=== PATIENT | male | born 1970 | race Caucasian/White ===

== ENCOUNTER 2021-11-11 00:23 | Inpatient (IN) | payer OTHER, MEDICAID, SELFPAY ==
[2021-11-11] VITALS (22 sets, daily range): BP systolic 101–200; BP diastolic 76–129; PULSE 79–119; RESP 10–38; TEMP 36.6–37.3; O2SAT 97–100; BMI 19.5
--- NOTE | 2021-11-11 00:29 | ED_ITS ---
HPI - Seizure General Chief Complaint: Seizure Stated Complaint: seizure, ETOH WD Time Seen by Provider: 11/11/21 00:29 History of Present Illness HPI Narrative: Patient is a 51-year-old male history of alcoholism presenting today with seizure. He was admitted to [facility] for 6 days where he went through detox. He was released 2 days ago. Partner states that he picked him up and within a few hours had a seizure at a park. They went to [place] is her he was given a dose of phenobarbital and released. They apparently tried to find him detox center but since he had already detox for the last 6 days in the hospital he was not accepted the. They are working on a 30 day outpatient program. However this evening he had another witnessed seizure that lasted for about 5 minutes. No loss of incontinence. Tonic clonic shaking all over the body. Patient has previously had alcohol withdrawal seizures. They are unsure the medication that he got at [facility]. He states that he is currently taking phenobarbital. He was started on after is going to [place]. Partner gave him half a tablet in the morning and another half this evening. And the few hours later had a seizure. Records from [place] reveal that patient was admitted to of [facility]. During his stay he had an MRI which was negative. He was treated by [facility] protocol with IV doses of Ativan. He was discharged home on phenobarbital 15 mg to be taken twice a day for 4 days then 15 mg once a day. He was also given thiamine at discharge as well. he has Been alcohol free for the last 8-9 days. It was recommended patient be readmitted to the hospital however he did not want to be readmitted Related Data Allergies Allergy/AdvReac Type Severity Reaction Status Date / Time codeine AdvReac Verified 11/11/21 00:30 Review of Systems Review of Systems Narrative: GENERAL: Denies chills, fatigue, malaise, fever, sweats, travel HEENT: Denies sinus pain, ear pain, sore throat, difficulty swallowing, neck pain RESPIRATORY: Denies dyspnea, cough, wheezing, hemoptysis, sputum. CARDIOVASCULAR: Denies chest pain, palpitations, orthopnea, edema GASTROINTESTINAL: Denies nausea, vomiting, abdominal pain, diarrhea, consti pation, melena. : Denies dysuria, frequency, incontinence, hematuria, urinary retention, flank pain. MUSCULOSKELETAL: Denies weakness, joint pain, or bony pain SKIN: No rash, no erythema, no pruritus NEUROLOGIC: See HPI PSYCHIATRIC: No concerning psychosocial issues. 12 point review of systems is negative except for those stated above and HPI Patient History Medical History (Updated 11/11/21 @ 03:34 by April Schroeder MD) Alcohol abuse Alcohol withdrawal seizure Tobacco dependence Family History (Updated 11/11/21 @ 03:18 by April Schroeder MD) Mother Alcohol dependence Brother Coronary artery disease Father Coronary artery disease Social History household members: significant other Smoking Status: Current every day smoker Exam Initial Vital Signs Initial Vital Signs: Vital Signs Pulse Rate 111 H 11/11/21 00:29 Blood Pressure 183/129 H 11/11/21 00:29 Pulse Oximetry 100 11/11/21 00:29 GENERAL: Alert 51-year-old male no sign of acute distress HEENT: Head atraumatic,EOMI, pupils reactive, face symmetric, moist mucous membranes CARDIOVASCULAR: Tachycardic regular RESPIRATORY: Breath sounds equal bilaterally, no wheezes rales or rhonchi. ABDOMEN: Soft, nontender. Normoactive bowel sounds all 4 quadrants. No guarding or rebound. EXTREMITIES: Normal range of motion, no clubbing or edema. Neurovascularly intact NEUROLOGICAL: Alert and oriented x4.Normal gait and speech. Shank Scourer strength equal bilaterally no asterixis SKIN: Warm, dry, no laceration, no petechiae, no rashes or lesions. Course Orders Ordered: ED Orders 11/11/21 00:15 CBC Auto Diff [Complete Blood Count AUTO DIFF] Stat CMP [Comprehensive Metabolic Panel] Stat ETOH [Ethanol (ETOH)] Stat Prolactin Stat Troponin & CK Cardiac Panel Stat 11/11/21 00:29 CT head/brain wo con Stat EKG-12 Lead Stat 11/11/21 01:08 Urine Drug Screen, Rapid Stat 11/11/21 02:00 COVID19 -Nasal RAPID/Pre-Proc Stat Calcium Carbonate (Calcium Carbonate 500 Mg Tab) 1,000 mg PO Q4HR PRN PRN Reason: Dyspepsia Chlordiazepoxide HCl (Chlordiazepoxide 25 Mg Capsule) 50 mg PO Q6HR MAI Last Admin: 11/11/21 05:20 Dose: 50 mg Documented by: [email or web address] Famotidine (Famotidine 20 Mg Tablet) 20 mg PO BEDTIME [facility] Folic Acid (Folic Acid 1 Mg Tablet) 1 mg PO DAILY [facility] Sodium Chloride (Normal Saline 0.9%) 1,000 mls @ 100 mls/hr IV CONT [facility] Last Admin: 11/11/21 03:55 Dose: 100 mls/hr Documented by: DEVANTE POTASSIUM CHLORIDE IN WATER (Potassium Cl 10 Meq/100 Ml [place]) 10 meq in 100 mls @ 100 mls/hr IV Q1H [facility] Stop: 11/11/21 10:14 Lorazepam (Lorazepam 2 Mg/Ml Inj) 0 mg IV CIWAPRN PRN; Protocol PRN Reason: Alcohol Withdrawal Multivitamins (Multivitamin 1 Tablet) 1 tab PO DAILY [facility] Naloxone HCl (Naloxone 0.4 Mg/Ml Vial) 0.2 mg IV Q2MIN PRN PRN Reason: Opiate Reversal Nicotine (Nicotine 21 Mg Patch) 21 mg TOP DAILY [facility] Ondansetron HCl (Ondansetron 4 Mg/2 Ml Inj) 4 mg IV Q6HR PRN PRN Reason: Nausea And Vomiting Pantoprazole Sodium (Pantoprazole Dr 20 Mg Tablet) 20 mg PO 0600 [facility] Last Admin: 11/11/21 05:20 Dose: 20 mg Documented by: DEVANTE Thiamine HCl (Thiamine 100 Mg Tablet) 100 mg PO DAILY [facility] Stop: 11/14/21 09:01 Discontinued Medications Sodium Chloride (Normal Saline 0.9%) 1,000 mls @ 1,000 mls/hr IV BOLUS ONE Stop: 11/11/21 01:28 Last Infusion: 11/11/21 02:47 Dose: 0 mls/hr Documented by: Admin: 11/11/21 01:12 Dose: 1,000 mls/hr Documented by: ARMAND Lorazepam (Lorazepam 2 Mg/Ml Inj) 1 mg IV NOW ONE Stop: 11/11/21 01:57 Last Admin: 11/11/21 02:02 Dose: 1 mg Documented by: BARBARA Phenobarbital (Phenobarbital 65 Mg/Ml Vial) 130 mg IV NOW ONE Stop: 11/11/21 01:23 Last Admin: 11/11/21 01:31 Dose: 130 mg Documented by: ARMAND Potassium Chloride (Potassium Chloride 20 Meq Tab) 40 meq PO NOW ONE Stop: 11/11/21 01:03 Last Admin: 11/11/21 01:12 Dose: 40 meq Documented by: ARMAND Potassium Chloride (Potassium Chloride 20 Meq Tab) 20 meq PO NOW ONE Stop: 11/11/21 06:10 Vital Signs Vital signs: Vital Signs - 8 hr 11/11/21 00:29 11/11/21 00:30 11/11/21 00:35 Temperature 98.5 F Pulse Rate 111 H 107 H 103 H Respiratory Rate 18 Blood Pressure 183/129 H 167/107 H 166/109 H Pulse Oximetry 100 100 100 11/11/21 00:45 11/11/21 01:00 11/11/21 01:15 Temperature Pulse Rate 100 H 95 H 100 H Respiratory Rate 19 18 38 H Blood Pressure 174/123 H 173/120 H 178/117 H Pulse Oximetry 100 99 98 11/11/21 01:30 11/11/21 01:45 11/11/21 02:00 Temperature Pulse Rate 96 H 97 H 90 Respiratory Rate 15 16 15 Blood Pressure 181/113 H 186/114 H 160/101 H Pulse Oximetry 100 100 99 MDM - Seizure Lab Data Result diagrams: 11/11/21 03:35 11/11/21 03:35 Labs: Lab Results 11/11/21 11/11/21 11/11/21 Range/Units 00:15 00:15 01:08 WBC 7.4 (4.5-11.0) X10^3/uL RBC 3.41 L (4.5-5.9) X10^6/uL Hgb 12.5 L (13.5-17.5) g/dL Hct 35.0 L (41-53) % MCV 102.5 H (80-100) fL MCH 36.7 H (26-34) PG MCHC 35.9 (30-36) % RDW 13.4 (11.6-14.8) % Plt Count 141 L (150-400) X10^3/uL Neut % (Auto) 54.8 (50-75) % Lymph % (Auto) 29.9 (25-40) % Dundy % (Auto) 12.6 (3-14) % Eos % (Auto) 1.1 L (2-4) % Baso % (Auto) 1.6 (0-2) % Neut # (Auto) 4100 (5700-1414) /uL Lymph # (Auto) 2200 (8025-3577) /uL Dundy # (Auto) 900 (0-900) /uL Eos # (Auto) 100 (0-450) /uL Baso # (Auto) 100 (0-100) /uL Sodium 132 L (137-145) mmol/L Potassium 3.1 L (3.4-5.1) mmol/L Chloride 100 (98-107) mmol/L Carbon Dioxide 24 (22-32) mmol/L BUN 4 L (9-20) mg/dL Creatinine 0.51 L (0.66-1.25) mg/dL Estimated GFR > 60 (>60) mL/min BUN/Creatinine Ratio 7.8 (6-22) Glucose 88 (70-100) mg/dL Calcium 8.5 (8.4-10.2) mg/dL Total Bilirubin 0.6 (0.2-1.3) mg/dL AST 98 H (17-59) IU/L ALT 57 H (<50) IU/L Alkaline Phosphatase 100 (38-126) U/L Total Creatine Kinase 86 (55-170) U/L CK-MB (CK-2) TNP CK-MB (CK-2) Rel Index TNP Troponin I < 0.012 (0.01-0.034) ng/mL Total Protein 6.7 (6.3-8.2) g/dL Albumin 3.8 (3.5-5.0) g/dL Globulin 2.9 (1.7-4.1) g/dL Albumin/Globulin Ratio 1.3 (1.0-2.8) Prolactin 48.9 H (3.7-17.9) ng/mL U Opiates 300ng/mL cut Negative (Negative) Ur Oxycodone Screen Negative (Negative) Urine Methadone Screen Negative (Negative) Ur Barbiturates Screen Positive H (Negative) U Tricyclic Antidepress Negative (Negative) Ur Phencyclidine Scrn Negative (Negative) Ur Amphetamines Screen Negative (Negative) U Methamphetamines Scrn Negative (Negative) Ur MDMA Scrn (Ecstasy) Negative (Negative) U Benzodiazepines Scrn Positive H (Negative) Urine Cocaine Screen Negative (Negative) U Marijuana (THC) Screen Positive H (Negative) Ethyl Alcohol < 10 ( - 10) mg/dL SARS-CoV-2 (PCR) (Negative) 11/11/21 Range/Units 02:00 WBC (4.5-11.0) X10^3/uL RBC (4.5-5.9) X10^6/uL Hgb (13.5-17.5) g/dL Hct (41-53) % MCV (80-100) fL MCH (26-34) PG MCHC (30-36) % RDW (11.6-14.8) % Plt Count (150-400) X10^3/uL Neut % (Auto) (50-75) % Lymph % (Auto) (25-40) % Dundy % (Auto) (3-14) % Eos % (Auto) (2-4) % Baso % (Auto) (0-2) % Neut # (Auto) (0763-2227) /uL Lymph # (Auto) (1475-7793) /uL Dundy # (Auto) (0-900) /uL Eos # (Auto) (0-450) /uL Baso # (Auto) (0-100) /uL Sodium (137-145) mmol/L Potassium (3.4-5.1) mmol/L Chloride (98-107) mmol/L Carbon Dioxide (22-32) mmol/L BUN (9-20) mg/dL Creatinine (0.66-1.25) mg/dL Estimated GFR (>60) mL/min BUN/Creatinine Ratio (6-22) Glucose (70-100) mg/dL Calcium (8.4-10.2) mg/dL Total Bilirubin (0.2-1.3) mg/dL AST (17-59) IU/L ALT (<50) IU/L Alkaline Phosphatase (38-126) U/L Total Creatine Kinase (55-170) U/L CK-MB (CK-2) CK-MB (CK-2) Rel Index Troponin I (0.01-0.034) ng/mL Total Protein (6.3-8.2) g/dL Albumin (3.5-5.0) g/dL Globulin (1.7-4.1) g/dL Albumin/Globulin Ratio (1.0-2.8) Prolactin (3.7-17.9) ng/mL U Opiates 300ng/mL cut (Negative) Ur Oxycodone Screen (Negative) Urine Methadone Screen (Negative) Ur Barbiturates Screen (Negative) U Tricyclic Antidepress (Negative) Ur Phencyclidine Scrn (Negative) Ur Amphetamines Screen (Negative) U Methamphetamines Scrn (Negative) Ur MDMA Scrn (Ecstasy) (Negative) U Benzodiazepines Scrn (Negative) Urine Cocaine Screen (Negative) U Marijuana (THC) Screen (Negative) Ethyl Alcohol ( - 10) mg/dL SARS-CoV-2 (PCR) Negative (Negative) Imaging Data CT scan - head: Radiologist's Impression: MR#: [id number] : 1970 Acct:[id number] Age/Sex: 51 / M Date of Service: 11/11/21 Loc: ED Accession Number: [id number] ?? Procedure: CT head/brain wo con Ordering Provider: Maria De Jesus Sparks D.O. PROCEDURE:? CT HEAD/BRAIN WO CON ? INDICATIONS:? seizure etoh ? TECHNIQUE:? Noncontrast 4.5 mm thick angled axial sections acquired from the foramen magnum to the vertex, with coronal and sagittal reformats.? For radiation dose reduction, the following was used:? automated exposure control, adjustment of mA and/or kV according to patient size.? ? COMPARISON:? None. ? FINDINGS:? Image quality:? Mild streak artifact can be seen through the skull base. ? CSF spaces:? Basal cisterns are patent.? No extra-axial fluid collections.? Ventricles are normal in size and shape.? ? Brain:? No midline shift.? No intracranial masses or hemorrhage.? Reese-white matter interface is normal.? ? Skull and face:? Calvarium and visualized facial bones are intact, without suspicious lesions.? ? Sinuses:? Visualized sinuses and mastoids are clear.? ? ? IMPRESSION:? Head CT within normal limits. ? ? Dictated by: Gato rOta M.D. on 11/10/2021 at 23:54 ? ? Approved by: Gato Orta M.D. on 11/10/2021 at 23:55 ? ECG Data Interpretation: Normal sinus rhythm rate 103 VT interval 146 QRS [address] changes is no T-wave inversions no priors to compare MDM Narrative Medical decision making narrative: The patient has now had 2 seizures in the last 24 hours. I think these seizures have been actually from Ativan withdrawal. He was discharged home on phenobarbital not sure they are taking it correctly the prescription is confusing to read. He is trying to get into an outpatient 30 day program as well and also needs medical clearance. At this time he is willing to stay in the hospital tonight to get seizures under control. Dr. Dodson in ED to see and evaluate, and accepts patient Discharge Plan Departure Patient Disposition: Admitted As Inpatient Clinical Impression: Alcohol withdrawal seizure Admit Date/Time: 11/11/21 02:00 Admit Provider: April Schroeder
--- NOTE | 2021-11-11 00:29 | DI.CT.S_ITS ---
PROCEDURE: CT HEAD/BRAIN WO CON INDICATIONS: seizure etoh TECHNIQUE: Noncontrast 4.5 mm thick angled axial sections acquired from the foramen magnum to the vertex, with coronal and sagittal reformats. For radiation dose reduction, the following was used: automated exposure control, adjustment of mA and/or kV according to patient size. COMPARISON: None. FINDINGS: Image quality: Mild streak artifact can be seen through the skull base. CSF spaces: Basal cisterns are patent. No extra-axial fluid collections. Ventricles are normal in size and shape. Brain: No midline shift. No intracranial masses or hemorrhage. Reese-white matter interface is normal. Skull and face: Calvarium and visualized facial bones are intact, without suspicious lesions. Sinuses: Visualized sinuses and mastoids are clear. IMPRESSION: Head CT within normal limits. Dictated by: Gato Orta M.D. on 11/10/2021 at 23:54 Approved by: Gato Orta M.D. on 11/10/2021 at 23:55
--- NOTE | 2021-11-11 00:35 | PC.NURSE ---
pt was post ictal upon ems arrival, upon arrival to ed pt is aao x 3, pt is taking phenobarb to prevent withdrawal sz states he missed his afternoon dose. last drink was 8 days ago pt went to rehab and was given a course of phenobarb he states he is almost completed the course
[2021-11-11 00:42] LABS: Add Manual Diff / Slide Review NO; Basophils Absolute Auto 100 /uL (0-100); Basophils Percent Auto 1.6 % (0-2); Eosinophils Absolute Auto 100 /uL (0-450); Eosinophils Percent Auto 1.1 % (2-4); Hemoglobin 12.5 g/dL (13.5-17.5); Lymphocytes Absolute Auto 2200 /uL (1100-4500); Lymphocytes Percent Auto 29.9 % (25-40); Mean Corpuscular HGB Conc 35.9 % (30-36); Mean Corpuscular Hemoglobin 36.7 PG (26-34); Mean Corpuscular Volume 102.5 fL (80-100); Monocytes Absolute Auto 900 /uL (0-900); Monocytes Percent Auto 12.6 % (3-14); Neutrophils Absolute Auto 4100 /uL (1500-7000); Neutrophils Percent Auto 54.8 % (50-75); Platelet Count 141 X10^3/uL (150-400); Red Blood Cell Count 3.41 X10^6/uL (4.5-5.9); Red Cell Distribution Width 13.4 % (11.6-14.8); White Blood Cell Count 7.4 X10^3/uL (4.5-11.0)
[2021-11-11 00:50] LABS: Alanine Aminotransferase 57 IU/L (<50); Albumin 3.8 g/dL (3.5-5.0); Albumin Globulin Ratio 1.3 (1.0-2.8); Alkaline Phosphatase 100 U/L (38-126); Aspartate Aminotransferase 98 IU/L (17-59); BUN Creatinine Ratio 7.8 (6-22); Bilirubin Total 0.6 mg/dL (0.2-1.3); Blood Urea Nitrogen 4 mg/dL (9-20); Calcium 8.5 mg/dL (8.4-10.2); Carbon Dioxide 24 mmol/L (22-32); Chloride 100 mmol/L (98-107); Creatine Kinase 86 U/L (55-170); Estimated Glomerular Filt Rate > 60 mL/min (>60); Ethanol (ETOH) < 10 mg/dL; Globulin 2.9 g/dL (1.7-4.1); Glucose 88 mg/dL (70-100); HEMOLYSIS < 15 (0-50); Potassium 3.1 mmol/L (3.4-5.1); Sodium 132 mmol/L (137-145); Total Protein 6.7 g/dL (6.3-8.2)
[2021-11-11 01:02] LABS: Troponin I < 0.012 ng/mL (0.01-0.034)
[2021-11-11 01:06] LABS: Prolactin 48.9 ng/mL (3.7-17.9)
[2021-11-11] MEDS: POTASSIUM CHLORIDE 20 MEQ TAB 40 MEQ PO (01:12)
[2021-11-11] MEDS: SODIUM CHLORIDE 0.9% 1,000 ML 1000 ML IV (01:12)
[2021-11-11 01:21] LABS: UR Morphine/Opiate cutoff 300 Negative (Negative); Ur Creatinine 50 (Normal); Ur Specific Gravity 1.025 (Normal); Urine Amphetamines Negative (Negative); Urine Cocaine Negative (Negative); Urine MDMA Negative (Negative); Urine Methamphetamines Negative (Negative); Urine Phencyclidine Negative (Negative); Urine Tetrahydrocannabinol Positive (Negative); Urine pH 5 (Normal)
[2021-11-11 01:22] LABS: Urine Barbiturates Positive (Negative); Urine Benzodiazepines Positive (Negative); Urine Methadone Negative (Negative); Urine Oxycodone Negative (Negative); Urine Tricyclic Antidepressant Negative (Negative)
[2021-11-11] MEDS: PHENobarbital 65 MG/ML VIAL 130 MG IV (01:31)
[2021-11-11] MEDS: LORazepam 2 MG/ML INJ 1 MG IV (02:02)
[2021-11-11 02:25] LABS: COVID19 -Nasal RAPID Negative (Negative)
--- NOTE | 2021-11-11 02:53 | P.HP_ITS ---
History of Present Illness History of Present Illness Chief complaint: seizure, ETOH WD Narrative: 51-year-old gentleman with longstanding history of alcohol dependence who presented to the emergency department after recurrent seizure. All history is obtained from the patient's significant other, Christo, as well as previous chart notes. Patient reportedly has had alcohol dependence for the past 35 years. For at least the past year or so, he has been drinking 12-18 beers per day or 1 large bottle of Merlot. He is have any significant period of sobriety. Up until 2020, he had not previously attempted to quit drinking. However, each time he has attempted to stop drinking since then, he has unfortunately suffered from withdrawal seizures. He recently stopped drinking alcohol on November 02, 2021. By the following day he had significant withdrawal symptoms. He was subsequently admitted to [facility] in [place], [place]. A brain MRI was reportedly normal. He remained there until November 09, 2021. His partner reported that the patient had been on benzodiazepines, but he is uncertain when those were discontinued. At the time of discharge, he was sent with a prescription for thiamine and a 2nd prescription but the patient's partner is uncertain what that med was. He left the hospital at approximately 1:00 p.m. However, around 4-430 p.m. he had a prolonged seizure lasting 5-6 minutes and he was transferred to [facility]. Admission was recommended but patient declined. He was given IV phenobarbital in the emergency department and was sent home with a prescription for this 15 mg twice daily followed by 15 mg once daily. He was sent with a 7 day prescription. Patient's partner reports he received a dose of oral phenobarbital on the evening of November 09. He also received both doses of oral phenobarbital on November 10. On the evening of November 10, he sustained another seizure and presented to [facility] Emergency Department for further evaluation. In the emergency department, he was noted to be postictal. He was initially quite hypertensive at 173/120. Pulse rate was 95, respiratory rate 18. Respiratory rate briefly documented at 38 but subsequently were down to the 15-[address] was performed and was within normal limits. CBC revealed macrocytic anemia with a hemoglobin of 12.5, as well as mild thrombocytopenia 141. And mild hyponatremia 132, potassium of 3.1. Urine tox screen was positive for marijuana, benzodiazepines, and barbiturates. Ethanol level was less than 10. Prolactin was 48.9. AST was elevated at 98. ALT elevated at 57. Normal alkaline phosphatase. Troponin was also within normal limits. In the emergency department, patient received 1 L of normal saline, 40 mEq of oral potassium chloride, 130 mg of IV phenobarbital, and 1 mg of IV lorazepam. Admission was recommended. Currently, patient is somnolent/postictal and unable to provide any history. Patient's partner reports patient has no history of seizure disorder, recent fall/head trauma, recent ill symptoms. He has gradually lost approximately 30 lb as he eats very poorly and primarily drinks his calories. He had been eating well in the hospital prior to discharge. He has not had any fevers or chills. No shortness of breath or complaint chest pain. He had not been having any nausea, vomiting, diarrhea, or complaints of abdominal pain. Patient History Medical History (Updated 11/11/21 @ 03:34 by April Schroeder MD) Alcohol abuse Alcohol withdrawal seizure Tobacco dependence Family & Social History Family History (Updated 11/11/21 @ 03:18 by April Schroeder MD) Mother Alcohol dependence Brother Coronary artery disease Father Coronary artery disease Social History: Patient and his partner presently living in an . 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 They sold their home and business and have not yet decided where they intend to go next. Patient and his partner have been together for the past 6 years. Safety & Behavioral: Feels Safe in Current Yes Environment Tobacco & Substance use: Smoking Status Current every day smoker Substance Use Type marijuana Comment: Patient presently smokes 2 packs per day Uses recreational marijuana but no other substance use. Meds Home Medications and Allergies Allergies Allergy/AdvReac Type Severity Reaction Status Date / Time codeine AdvReac Verified 11/11/21 00:30 Review of Systems Constitutional Constitutional: Reports as per HPI, Reports poor appetite and Reports weight loss Neurologic Neurologic: Reports as per HPI and Reports seizure-like activity Exam Vital Signs (past 8 hours): - 11/11/21 00:29 11/11/21 00:30 11/11/21 00:35 Temperature 98.5 F Pulse Rate 111 H 107 H 103 H Respiratory Rate 18 Blood Pressure 183/129 H 167/107 H 166/109 H Pulse Oximetry 100 100 100 06/04/22 00:45 11/11/21 01:00 11/11/21 01:15 Temperature Pulse Rate 100 H 95 H 100 H Respiratory Rate 19 18 38 H Blood Pressure 174/123 H 173/120 H 178/117 H Pulse Oximetry 100 99 98 11/11/21 01:30 11/11/21 01:45 11/11/21 02:00 Temperature Pulse Rate 96 H 97 H 90 Respiratory Rate 15 16 15 Blood Pressure 181/113 H 186/114 H 160/101 H Pulse Oximetry 100 100 99 11/11/21 02:15 11/11/21 02:30 11/11/21 02:44 Temperature Pulse Rate 91 H 90 90 Respiratory Rate 10 L 16 10 L Blood Pressure 149/93 H 142/97 H Pulse Oximetry 11/11/21 02:45 Temperature Pulse Rate Respiratory Rate Blood Pressure 127/85 Pulse Oximetry Oxygen Delivery Method Room Air Narrative Exam Narrative: GEN: Somnolent/postictal, middle-aged male, smells strongly of cigarettes, NAD HEENT: Normocephalic, face symmetric, nares patent, difficult to assess his oropharynx is I cannot get him to cooperate with exam, pupils appear equal and reactive the extraocular movements cannot be assessed NECK: Supple, no lymphadenopathy, no thyroid enlargement or nodularity, no bruits CHEST: Respiratory excursions symmetric, clear to auscultation bilaterally CV: Regular rate and rhythm, no murmurs/rubs/gallops, PMI nondisplaced ABD: Soft, mildly tender to palpation of the right upper quadrant, nondistended, bowel sounds present in all 4 quadrants, no organomegaly appre ciated EXTR: Warm, well perfused, no clubbing, cyanosis, or edema SKIN: Warm and dry, no rashes NEURO: Appears grossly intact though cannot assess due to his sedation PSYCH: Unable to assess Objective Labs Result Diagrams: 11/11/21 00:15 11/11/21 00:15 Labs: Laboratory Results - last 24 hr 11/11/21 11/11/21 11/11/21 00:15 00:15 01:08 WBC 7.4 RBC 3.41 L Hgb 12.5 L Hct 35.0 L MCV 102.5 H MCH 36.7 H MCHC 35.9 RDW 13.4 Plt Count 141 L Neut % (Auto) 54.8 Lymph % (Auto) 29.9 [place] % (Auto) 12.6 Eos % (Auto) 1.1 L Baso % (Auto) 1.6 Neut # (Auto) 4100 Lymph # (Auto) 2200 [place] # (Auto) 900 Eos # (Auto) 100 Baso # (Auto) 100 Sodium 132 L Potassium 3.1 L Chloride 100 Carbon Dioxide 24 BUN 4 L Creatinine 0.51 L Estimated GFR > 60 BUN/Creatinine Ratio 7.8 Glucose 88 Calcium 8.5 Total Bilirubin 0.6 AST 98 H ALT 57 H Alkaline Phosphatase 100 Total Creatine Kinase 86 CK-MB (CK-2) TNP CK-MB (CK-2) Rel Index TNP Troponin I < 0.012 Total Protein 6.7 Albumin 3.8 Globulin 2.9 Albumin/Globulin Ratio 1.3 Prolactin 48.9 H U Opiates 300ng/mL cut Negative Ur Oxycodone Screen Negative Urine Methadone Screen Negative Ur Barbiturates Screen Positive H U Tricyclic Antidepress Negative Ur Phencyclidine Scrn Negative Ur Amphetamines Screen Negative U Methamphetamines Scrn Negative Ur MDMA Scrn (Ecstasy) Negative U Benzodiazepines Scrn Positive H Urine Cocaine Screen Negative U Marijuana (THC) Screen Positive H Ethyl Alcohol < 10 SARS-CoV-2 (PCR) 11/11/21 02:00 WBC RBC Hgb Hct MCV MCH MCHC RDW Plt Count Neut % (Auto) Lymph % (Auto) [place] % (Auto) Eos % (Auto) Baso % (Auto) Neut # (Auto) Lymph # (Auto) [place] # (Auto) Eos # (Auto) Baso # (Auto) Sodium Potassium Chloride Carbon Dioxide BUN Creatinine Estimated GFR BUN/Creatinine Ratio Glucose Calcium Total Bilirubin AST ALT Alkaline Phosphatase Total Creatine Kinase CK-MB (CK-2) CK-MB (CK-2) Rel Index Troponin I Total Protein Albumin Globulin Albumin/Globulin Ratio Prolactin U Opiates 300ng/mL cut Ur Oxycodone Screen Urine Methadone Screen Ur Barbiturates Screen U Tricyclic Antidepress Ur Phencyclidine Scrn Ur Amphetamines Screen U Methamphetamines Scrn Ur MDMA Scrn (Ecstasy) U Benzodiazepines Scrn Urine Cocaine Screen U Marijuana (THC) Screen Ethyl Alcohol SARS-CoV-2 (PCR) Negative Assessment & Plan Assessment and plan (1) Tobacco dependence: Status: Acute (2) Alcohol withdrawal seizure: Status: Acute (3) Alcohol abuse: Status: Acute Assessment & Plan narrative: 1. Seizure Patient has a known history of alcohol withdrawal seizures. He was admitted for 7 days at [facility] in [place], [place]. At the time of discharge, it does not appear he was given any benzodiazepines. I am uncertain as to when he received his last dose of benzodiazepine in the hospital. Shortly after discharge, he had a witnessed prolonged seizure lasting 5-6 minutes. He subsequently was seen in the emergency department at [facility]. Admission was recommended but he declined. He received IV phenobarbital as well as a 7 day prescription/taper at discharge. He did receive 3 doses of phenobarbital orally but unfortunately he sustained another seizure on the evening of admission. His last alcohol was 8 days prior to arrival in our emergency department. It is possible he has a prolonged withdrawal syndrome, particularly in light of his 35-year-old daily alcohol use and most recent heavy alcohol use. It is also possible he was receiving benzodiazepines during his inpatient stay and he has suffered acute withdrawal seizure secondary to discontinuation of benzodiazepines. He has not had any alcohol since discharge from [facility] in [place]. At this time, will plan admission to the hospital for further ongoing care. Will place on oral Librium taper with 50 mg q.6 hours for 24 hours, then 50 mg t.i.d. for 24 hours, then 50 mg b.i.d. for 24 hours, then 50 mg once daily for 1 day, then stop. Would recommend he remain in hospital until he has been off of benzodiazepines for 24 hours without symptoms. As noted, admission noncontrast head CT was within normal limits 2. Alcohol dependence Patient has a longstanding history of alcohol dependence extending 35 years. Has been drinking heavily (12-18 beers daily) for at least the past year. His partner is requesting resources for inpatient or outpatient alcohol rehab resources. Discharge planning consult has been requested. 3. Hypokalemia Patient did receive potassium replacement in the emergency department, 40 mEq. His potassium was 3.1. Will repeat labs in the morning. Will additionally obtain a magnesium level. 4. Macrocytic anemia Likely secondary to marrow suppression from his alcohol abuse. Admission hemoglobin is 12.5. MCV is 102.5. 5. Thrombocytopenia Mild. Likely secondary to alcohol use. 6. Transaminitis, likely alcohol induced hepatitis LFTs are elevated as noted with AST of 98, ALT of 57. I have no prior numbers for comparison. Will repeat labs in the morning. I am uncertain if he has had any evaluation for viral hepatitis or other etiologies. 7. Tobacco dependence Patient smokes 2 packs of cigarettes daily. 21 mg nicotine patch has been ordered. 8. Protein calorie malnutrition Patient has reportedly had a 30 lb weight loss which has been gradual over the past couple of years. His partner reports he eats very little when he is drinking. Dietitian consult has been requested. Code status Full Prophylaxis Low Huyen score Disposition Admit to inpatient, acute care. Time Spent With Patient Critical Care time: I spent a total of [] minutes of critical care time on this patient's care today; this time is exclusive of procedural time.
[2021-11-11] MEDS: SODIUM CHLORIDE 0.9% 1,000 ML 100 ML IV (03:55)
[2021-11-11 03:56] LABS: Add Manual Diff / Slide Review NO; Basophils Absolute Auto 100 /uL (0-100); Basophils Percent Auto 1.2 % (0-2); Eosinophils Absolute Auto 0 /uL (0-450); Eosinophils Percent Auto 0.6 % (2-4); Hematocrit 30.8 % (41-53); Lymphocytes Absolute Auto 1000 /uL (1100-4500); Lymphocytes Percent Auto 16.4 % (25-40); Mean Corpuscular HGB Conc 35.7 % (30-36); Mean Corpuscular Hemoglobin 36.3 PG (26-34); Mean Corpuscular Volume 101.7 fL (80-100); Monocytes Absolute Auto 800 /uL (0-900); Neutrophils Absolute Auto 4400 /uL (1500-7000); Neutrophils Percent Auto 69.8 % (50-75); Platelet Count 117 X10^3/uL (150-400); Red Blood Cell Count 3.03 X10^6/uL (4.5-5.9); Red Cell Distribution Width 13.7 % (11.6-14.8); White Blood Cell Count 6.3 X10^3/uL (4.5-11.0)
[2021-11-11 04:01] LABS: Alanine Aminotransferase 53 IU/L (<50); Albumin Globulin Ratio 1.2 (1.0-2.8); Alkaline Phosphatase 88 U/L (38-126); Aspartate Aminotransferase 73 IU/L (17-59); BUN Creatinine Ratio 6.7 (6-22); Bilirubin Total 0.6 mg/dL (0.2-1.3); Blood Urea Nitrogen 3 mg/dL (9-20); Calcium 7.6 mg/dL (8.4-10.2); Carbon Dioxide 24 mmol/L (22-32); Chloride 103 mmol/L (98-107); Estimated Glomerular Filt Rate > 60 mL/min (>60); Globulin 2.6 g/dL (1.7-4.1); Glucose 118 mg/dL (70-100); HEMOLYSIS < 15 (0-50); Magnesium 1.8 mg/dL (1.6-2.3); Phosphorous 3.7 mg/dL (2.5-4.5); Potassium 2.9 mmol/L (3.4-5.1); Sodium 132 mmol/L (137-145); Total Protein 5.6 g/dL (6.3-8.2)
[2021-11-11] MEDS: chlordiazePOXIDE 25 MG CAPSULE 50 MG PO ×4 (05:20→20:32)
[2021-11-11] MEDS: PANTOPRAZOLE DR 20 MG TABLET PO (05:20)
[2021-11-11] MEDS: POTASSIUM CHLORIDE 20 MEQ TAB PO (06:28)
[2021-11-11] MEDS: POTASSIUM CHLORIDE IN WATER 10 MEQ/100 ML PIGGYBACK 100 MEQ IV ×4 (06:28→10:15)
--- NOTE | 2021-11-11 07:32 | PC.NURSE ---
Patient admitted from ED around 0300, arrived via stretcher, lethargic, knows his name and where he is. Using urinal with assist, forgets to use call light, bed alarm on. SO at bedside. SR-ST 85-99.
--- NOTE | 2021-11-11 08:48 | PC.NURSE ---
Addendum entered by Miriam Armstrong R.N. 11/11/21 16:25: Pt has decided to stay for an additional night, as recomended Addendum entered by Miriam Armstrong R.N. 11/11/21 15:32: Pt with no seizure activity this shift. Frequent requests to DC home. Dr Ruiz writing fo rDC orders, CIWA scores have been 1, 3. Pt is notably more anxious and states I already have an inpatient bed S. O Josue expresses significant concerns with Pt DC home to . There has been no rest with the increased seizure activity and overall anxiety at home, and the inability to get Pt an inpatient bed when he is ready to accept treatment is increasingly frustrating for both patient and S.O. Update to Care management, Xray of R shoulder with displaced fracture, sling placed. Pt able to ambulate in room, but gait is not steady. Update to Dr Ruiz. Original Note: AM Shift Pt sleeping soundly, able to use urinal sitting up at edge of bed. SO at bedside. BA active. K riders infusing. Seizure precautions in place.
--- NOTE | 2021-11-11 12:28 | DI.RAD.S_ITS ---
PROCEDURE: XR SHOULDER RT 1V INDICATIONS: r/o fx TECHNIQUE: Single frontal view of the shoulder were acquired. COMPARISON: None. FINDINGS: Bones: There is a mildly displaced distal clavicle fracture with slight superior displacement. Acromioclavicular interval appears intact. The proximal humerus is intact. Overlying ribs appear intact. Soft tissues: No suspicious soft tissue calcifications. There is mild tenting of the skin from displaced clavicle fracture. Imaged lungs are clear. IMPRESSION: Mildly displaced distal clavicle fracture. Dictated by: Alirio Brewer D.O. on 11/11/2021 at 11:50 Approved by: Alirio Brewer D.O. on 11/11/2021 at 11:51
[2021-11-11] MEDS: FOLIC ACID 1 MG TABLET PO (12:51)
[2021-11-11] MEDS: MULTIVITAMIN 1 TABLET 1 TAB PO (12:51)
[2021-11-11] MEDS: THIAMINE 100 MG TABLET PO (12:57)
[2021-11-11] MEDS: NICOTINE 21 MG PATCH TOP (12:57)
[2021-11-11] MEDS: ACETAMINOPHEN 325 MG TABLET 650 MG PO ×2 (12:58→20:33)
--- NOTE | 2021-11-11 13:50 | CM.DANOTE ---
DCP: Payor: Medicaid PCP: Unknown Pt is a 51 y.o. M admitted to the floor for ETOH WD and seizure. Pt has had alcohol dependence for the last 35 years. Pt drinks 12-18 beers per day or 1 large bottle of wine for at least the past year. When pt has attempted to stop drinking, he has been reporting seizures. Pt also smokes 2 packs of cigarettes per day. Pt here for monitoring. Per MD, pt is medically stable for discharge today. DCP met with pt this afternoon at the bedside. Pt has been sleeping most of the day and seems drowsy when speaking with him. DCP explained role and provided him with resources for outpatient rehab within the area. Pt receptive. DCP asked pt how he was getting home. Pt states he is looking for his cellphone to call someone to pick him up. DCP stated to please let RN know if unable to locate it or find a ride home. Pt verbalied understanding. DCP to follow up with pt before discharge to make sure pt has a ride. P: Pt to discharge home via friend POV. Resources given to pt for outpatient rehab treatment. No other needs identified at this time. Genoveva Gonzales RN/BRITTNEY Discharge Planning/Care Management CM Discharge Assessment Start: 11/11/21 13:49 Freq: Status: Active Protocol: Document 11/11/21 13:49 MEETA (Rec: 11/11/21 13:50 MEETA [id number]) Discharge Planning Assessment Assigned Hospice Music Therapist Genoveva Gonzales RN/BRITTNEY Advance Directives? No History Provided By Patient,Medical Record Prior Living Arrangements RV Household Members significant other Type of transporation used prior to Relies on Others admit Independent with ADL's Yes Is patient alert and oriented? Yes Caregiver for Another No Discharge Plan Home Transportation Arrangement POV via life partner Referrals Initiated None needed Whiteboard Updated in Patient Room with Yes name and ext. # of Hospice Music Therapist Comment Instructed to call with any other questions Review Status In Process Please Provide Date Initial DC 11/11/21 Assessment Was Performed Next Review Type Continued Stay Review
[2021-11-11] MEDS: LORazepam 2 MG/ML INJ IV (17:28)
--- NOTE | 2021-11-11 17:49 | P.PN_ITS ---
Subjective Subjective Date Patient Seen: 11/11/21 Interval history: Patient has not had further seizures since admission. He is on Librium taper. He got potassium replacement for low K. CIWA score has been 0. Has also been complaining of right shoulder pain with shoulders showing a mildly displaced distal clavicle fracture. Exam Vital Signs (past 8 hours): - 11/11/21 10:15 11/11/21 12:30 11/11/21 16:00 Temperature 98 F 98 F 97.8 F Pulse Rate 86 79 80 Respiratory Rate 15 16 18 Blood Pressure 162/104 H 200/111 H 131/89 Pulse Oximetry 99 97 98 Oxygen Delivery Method Room Air Oxygen Flow Rate 0 Narrative Exam Narrative: General: Sleepy but more alert later, not confused, not anxious or shaky Tender at distal right clavicle without gross deformity. Objective Labs Result Diagrams: 11/11/21 03:35 11/11/21 03:35 Labs: Laboratory Results - last 24 hr 11/11/21 11/11/21 11/11/21 00:15 00:15 01:08 WBC 7.4 RBC 3.41 L Hgb 12.5 L Hct 35.0 L MCV 102.5 H MCH 36.7 H MCHC 35.9 RDW 13.4 Plt Count 141 L Neut % (Auto) 54.8 Lymph % (Auto) 29.9 [place] % (Auto) 12.6 Eos % (Auto) 1.1 L Baso % (Auto) 1.6 Neut # (Auto) 4100 Lymph # (Auto) 2200 [place] # (Auto) 900 Eos # (Auto) 100 Baso # (Auto) 100 Sodium 132 L Potassium 3.1 L Chloride 100 Carbon Dioxide 24 BUN 4 L Creatinine 0.51 L Estimated GFR > 60 BUN/Creatinine Ratio 7.8 Glucose 88 Calcium 8.5 Phosphorus Magnesium Total Bilirubin 0.6 AST 98 H ALT 57 H Alkaline Phosphatase 100 Total Creatine Kinase 86 CK-MB (CK-2) TNP CK-MB (CK-2) Rel Index TNP Troponin I < 0.012 Total Protein 6.7 Albumin 3.8 Globulin 2.9 Albumin/Globulin Ratio 1.3 Prolactin 48.9 H Nasal Screen MRSA (PCR) U Opiates 300ng/mL cut Negative Ur Oxycodone Screen Negative Urine Methadone Screen Negative Ur Barbiturates Screen Positive H U Tricyclic Antidepress Negative Ur Phencyclidine Scrn Negative Ur Amphetamines Screen Negative U Methamphetamines Scrn Negative Ur MDMA Scrn (Ecstasy) Negative U Benzodiazepines Scrn Positive H Urine Cocaine Screen Negative U Marijuana (THC) Screen Positive H Ethyl Alcohol < 10 SARS-CoV-2 (PCR) 11/11/21 11/11/21 11/11/21 02:00 03:00 03:35 WBC 6.3 RBC 3.03 L Hgb 11.0 L Hct 30.8 L MCV 101.7 H MCH 36.3 H MCHC 35.7 RDW 13.7 Plt Count 117 L Neut % (Auto) 69.8 Lymph % (Auto) 16.4 L [place] % (Auto) 12.0 Eos % (Auto) 0.6 L Baso % (Auto) 1.2 Neut # (Auto) 4400 Lymph # (Auto) 1000 L [place] # (Auto) 800 Eos # (Auto) 0 Baso # (Auto) 100 Sodium Potassium Chloride Carbon Dioxide BUN Creatinine Estimated GFR BUN/Creatinine Ratio Glucose Calcium Phosphorus Magnesium Total Bilirubin AST ALT Alkaline Phosphatase Total Creatine Kinase CK-MB (CK-2) CK-MB (CK-2) Rel Index Troponin I Total Protein Albumin Globulin Albumin/Globulin Ratio Prolactin Nasal Screen MRSA (PCR) Negative for mrsa U Opiates 300ng/mL cut Ur Oxycodone Screen Urine Methadone Screen Ur Barbiturates Screen U Tricyclic Antidepress Ur Phencyclidine Scrn Ur Amphetamines Screen U Methamphetamines Scrn Ur MDMA Scrn (Ecstasy) U Benzodiazepines Scrn Urine Cocaine Screen U Marijuana (THC) Screen Ethyl Alcohol SARS-CoV-2 (PCR) Negative 11/11/21 03:35 WBC RBC Hgb Hct MCV MCH MCHC RDW Plt Count Neut % (Auto) Lymph % (Auto) [place] % (Auto) Eos % (Auto) Baso % (Auto) Neut # (Auto) Lymph # (Auto) [place] # (Auto) Eos # (Auto) Baso # (Auto) Sodium 132 L Potassium 2.9 L Chloride 103 Carbon Dioxide 24 BUN 3 L Creatinine 0.45 L Estimated GFR > 60 BUN/Creatinine Ratio 6.7 Glucose 118 H Calcium 7.6 L Phosphorus 3.7 Magnesium 1.8 Total Bilirubin 0.6 AST 73 H ALT 53 H Alkaline Phosphatase 88 Total Creatine Kinase CK-MB (CK-2) CK-MB (CK-2) Rel Index Troponin I Total Protein 5.6 L Albumin 3.0 L Globulin 2.6 Albumin/Globulin Ratio 1.2 Prolactin Nasal Screen MRSA (PCR) U Opiates 300ng/mL cut Ur Oxycodone Screen Urine Methadone Screen Ur Barbiturates Screen U Tricyclic Antidepress Ur Phencyclidine Scrn Ur Amphetamines Screen U Methamphetamines Scrn Ur MDMA Scrn (Ecstasy) U Benzodiazepines Scrn Urine Cocaine Screen U Marijuana (THC) Screen Ethyl Alcohol SARS-CoV-2 (PCR) [facility] Medical History (Updated 11/11/21 @ 03:34 by April Schroeder MD) Alcohol abuse Alcohol withdrawal seizure Tobacco dependence Family History (Updated 11/11/21 @ 03:18 by April Schroeder MD) Mother Alcohol dependence Brother Coronary artery disease Father Coronary artery disease Social History household members: significant other Smoking Status: Current every day smoker Assessment & Plan Assessment & Plan narrative: 1. Recurrent seizures -initially secondary to ETOH withdrawal and was admitted to [facility] for 1 week, discharge 11/09, had a seizure just a couple hours after leaving hospital, seen at [facility] and treated with phenobarbital, declined admission and then ended up here with another seizure -last ETOH was over a week ago and probably these more recent seizures may be from benzodiazepine withdrawal rather than ETOH withdrawal -continue Librium taper -initially wanted to go home today then decided to stay, prudent to watch him 1 more day to make sure no seizures on the Librium -received info on outpatient alcohol treatment resources 2. Right distal clavicle fracture with mild displacement -this can be nonsurgically managed, provided sling for comfort and immobilization -instructed in ROM exercises, dangling arm and gently moving arm in circles -recommended outpatient Ortho follow-up 3. Anemia and thrombocytopenia secondary to alcohol dependency -continue daily thiamin and folic acid 4. Hypokalemia -received IV and oral potassium replacement -recheck in a.m. 5. Moderate to severe chronic protein calorie malnutrition secondary to alcoholism -BMI 19 -address underlying cause Time Spent With Patient Critical Care time: I spent a total of [] minutes of critical care time on this patient's care today; this time is exclusive of procedural time.
[2021-11-11] MEDS: HYDROCODONE/ACET 5/325 TABLET 1 TAB PO (23:45)
[2021-11-12] VITALS (23 sets, daily range): BP systolic 90–184; BP diastolic 62–115; PULSE 81–112; RESP 14–19; TEMP 36.3–37.3; O2SAT 97–100; BMI 19.5
--- NOTE | 2021-11-12 05:34 | DI.RAD.S_ITS ---
PROCEDURE: XR HIP W PEL IF DONE RT 2V INDICATIONS: Patient fell while climbing OOB, landed on his right hip. TECHNIQUE: AP pelvis with lateral view(s) of the right hip(s). COMPARISON: None. FINDINGS: Bones: There is a comminuted and displaced intertrochanteric fracture of the proximal right femur. This includes fractures of the greater and lesser trochanters. There is superior and lateral migration of the distal fracture fragment. Mild degenerative changes of the hips. Pelvic ring appears intact. No suspicious bony lesions. Soft tissues: The visualized bowel gas pattern is normal. N soft tissue vascular calcifications. IMPRESSION: Comminuted and displaced intertrochanteric fracture of the proximal right femur. This includes fractures of the greater and lesser trochanters. Agree with preliminary report. Dictated by: Alirio Brewer D.O. on 11/12/2021 at 6:59 Approved by: Alirio Brewer D.O. on 11/12/2021 at 7:03
[2021-11-12] MEDS: HYDROCODONE/ACET 5/325 TABLET 1 TAB PO (06:05)
--- NOTE | 2021-11-12 06:20 | PC.NURSE ---
Addendum entered by Mary Perales R.N. 11/12/21 07:45: Patient had no seizure activity during the night. Was wearing RUE sling all night and when he fell out of the right side of bed. Addendum entered by Mary Perales R.N. 11/12/21 07:11: Patient alert and oriented after fall, cooperative with care. Rt pedal pulse +2 palpable. Patient denies numbness or tingling in RLE. Is not able to lift right leg up off of bed. Can lift left leg up off bed. Patient c/o 11/17 RLE pain medicated with NORCO and then Dilaudid. Dr. Castaneda came to bedside and explained to patient that he does have a hip fracture that will require surgery. I asked patient if he would like me to call his SO, Christo and patient informed he had already sent a text message to him. Original Note: At 0505 patient attempted to climb out of bed, scooted down in bed and slid out the end of the right side of the bed, landing on his right hip. The side rails were up with seizure pads on both the right and left side of the bed. The patient stated trying to go pee in the BR and slid on the pads out the end of the bed. The urinal and call light were at the bedside. The patient had been up OOB with the SOURCING CONSULTANT six times to the BR during the evening with one assist and FWW. Atif Avery RN heard patient fall. Curtains were drawn in patient room, so the fall was not visually witnessed, only heard. Dr. Castaneda notified, hip and pelvic xray were ordered and completed. Hortensia Jenkins, superintendent track notified. Patient sent a text to his SO.
[2021-11-12] MEDS: HYDROMORPHONE 0.5 MG INJ IV (06:48)
[2021-11-12 07:12] LABS: Add Manual Diff / Slide Review NO; Basophils Absolute Auto 100 /uL (0-100); Basophils Percent Auto 1.3 % (0-2); Eosinophils Absolute Auto 0 /uL (0-450); Eosinophils Percent Auto 0.9 % (2-4); Hematocrit 29.7 % (41-53); Hemoglobin 10.4 g/dL (13.5-17.5); Lymphocytes Absolute Auto 800 /uL (1100-4500); Lymphocytes Percent Auto 17.3 % (25-40); Mean Corpuscular HGB Conc 35.1 % (30-36); Mean Corpuscular Hemoglobin 36.3 PG (26-34); Mean Corpuscular Volume 103.3 fL (80-100); Monocytes Absolute Auto 700 /uL (0-900); Monocytes Percent Auto 14.4 % (3-14); Neutrophils Absolute Auto 3200 /uL (1500-7000); Neutrophils Percent Auto 66.1 % (50-75); Platelet Count 123 X10^3/uL (150-400); Red Blood Cell Count 2.88 X10^6/uL (4.5-5.9); Red Cell Distribution Width 13.5 % (11.6-14.8); White Blood Cell Count 4.9 X10^3/uL (4.5-11.0)
[2021-11-12 07:19] LABS: Prothrombin Time 11.4 SECONDS (10.1-12.7)
[2021-11-12 08:12] LABS: BUN Creatinine Ratio 11.9 (6-22); Blood Urea Nitrogen 5 mg/dL (9-20); Carbon Dioxide 25 mmol/L (22-32); Chloride 101 mmol/L (98-107); Estimated Glomerular Filt Rate > 60 mL/min (>60); Glucose 113 mg/dL (70-100); HEMOLYSIS < 15 (0-50); Potassium 3.5 mmol/L (3.4-5.1); Sodium 128 mmol/L (137-145)
[2021-11-12] MEDS: THIAMINE 100 MG TABLET PO (08:44)
[2021-11-12] MEDS: ACETAMINOPHEN 325 MG TABLET 650 MG PO (08:45)
[2021-11-12] MEDS: FOLIC ACID 1 MG TABLET PO (08:45)
[2021-11-12] MEDS: chlordiazePOXIDE 25 MG CAPSULE 50 MG PO (08:45)
[2021-11-12] MEDS: MULTIVITAMIN 1 TABLET 1 TAB PO (08:45)
[2021-11-12] MEDS: NICOTINE 21 MG PATCH TOP (08:46)
--- NOTE | 2021-11-12 09:06 | PM.CN ---
History of Present Illness Consult details Date Patient Seen: 11/12/21 Time Patient Seen: 09:06 Chief complaint: seizure, ETOH WD Reason for consult: right hip fracture Narrative: The patient is a 51-year-old gentleman with a history of alcohol abuse and seizures. He had been hospitalized for these issues and was set for discharge later today when he fell out of bed overnight and had significant right hip pain. Radiographs have revealed a displaced subtrochanteric/intertrochanteric hip fracture. Orthopedic surgery has been consulted in order to address the fracture. Meds Home Medications and Allergies Home Medications Medication Instructions Recorded Confirmed Type chlordiazepoxide HCl 25 mg capsule See Rx Instructions .ROUTE 11/11/21 Rx .COMPLEX PRN #24 cap naltrexone 50 mg tablet 50 mg PO DAILY 11/11/21 11/11/21 History thiamine HCl (vitamin B1) 100 mg 100 mg PO DAILY 11/11/21 11/11/21 History tablet Allergies Allergy/AdvReac Type Severity Reaction Status Date / Time codeine AdvReac Verified 11/11/21 00:30 Review of Systems Review of Systems Narrative: The patient is somnolent this morning and review of systems is not obtained. Exam Vital Signs (past 8 hours): - 11/12/21 04:00 11/12/21 08:54 Temperature 97.4 F L 98.4 F Pulse Rate 81 86 Respiratory Rate 17 14 Blood Pressure 129/84 143/93 H Pulse Oximetry 98 100 Oxygen Delivery Method Room Air Oxygen Flow Rate 0 Narrative Exam Narrative: The patient is resting comfortably in bed. His right leg is shortened and externally rotated. There is no obvious skin lesion over the site of the proposed incisions. Calf is soft. Light touch and motion are intact in the right lower extremity. Objective Labs Result Diagrams: 11/12/21 07:00 11/12/21 07:00 Labs: Laboratory Results - last 24 hr 11/12/21 11/12/21 11/12/21 07:00 07:00 07:00 WBC 4.9 RBC 2.88 L Hgb 10.4 L Hct 29.7 L MCV 103.3 H MCH 36.3 H MCHC 35.1 RDW 13.5 Plt Count 123 L Neut % (Auto) 66.1 Lymph % (Auto) 17.3 L [place] % (Auto) 14.4 H Eos % (Auto) 0.9 L Baso % (Auto) 1.3 Neut # (Auto) 3200 Lymph # (Auto) 800 L [place] # (Auto) 700 Eos # (Auto) 0 Baso # (Auto) 100 PT 11.4 INR 1.0 Sodium 128 L Potassium 3.5 Chloride 101 Carbon Dioxide 25 BUN 5 L Creatinine 0.42 L Estimated GFR > 60 BUN/Creatinine Ratio 11.9 Glucose 113 H Calcium 8.0 L PFSH Medical History Alcohol abuse Alcohol withdrawal seizure Tobacco dependence Family History Mother Alcohol dependence Brother Coronary artery disease Father Coronary artery disease Social History household members: significant other Tobacco & Substance Use Smoking Status: Current every day smoker alcohol intake: current Assessment & Plan Assessment & Plan narrative: The patient fell from bed in the hospital last night and sustained a displaced right intertrochanteric/subtrochanteric hip fracture. This would best be addressed with an intramedullary hip screw. He is somewhat sleepy this morning but I was able to arouse him to the point he was able to understand a consent discussion. We discussed the risks of surgery including but not limited to failure to improve pain or function, cut out of the screw, blood loss requiring transfusion, infection, nerve damage, deep venous thrombosis, pulmonary embolism, stroke, myocardial infarction, permanent paralysis and . He is NPO since last night. We will taken to the operating room later today for the intramedullary hip screw. COVID-19 COVID-19 status: Negative Result date/Date tested (Pos, Neg/Pending): 11/11/21 Time Spent With Patient Time with patient: 30 to 49 minutes with 50% spent counseling/coordinating care Critical Care time: I spent a total of [] minutes of critical care time on this patient's care today; this time is exclusive of procedural time.
--- NOTE | 2021-11-12 09:25 | P.PN_ITS ---
Subjective Subjective Date Patient Seen: 11/12/21 Interval history: 51-year-old alcoholic male admitted with recurrent seizures due to ETOH/benzo withdrawal. He was actually supposed to be discharged today. CIWA score has been 0 in hospital on Librium taper and he has not had further seizures. Unfortunately he had a fall early this morning while getting up unassisted from hospital bed. His x-rays revealed a displaced intertrochanteric/subtrochanteric right hip fracture. Dr. Morrison was consulted for ortho and planning to take patient to OR for screw fixation this afternoon. Patient is quite sedated but arousable this morning and I will reduce his Librium dosing to 25 mg t.i.d.. He has slight worsening anemia with IV hydration which is likely chronic. He has slight worsening hyponatremia which was present on admission. Potassium deficiency present on admission has been corrected. Additionally he was found to have a distal right clavicle fracture present on admission which was related to fall/seizure. Exam Vital Signs (past 8 hours): - 11/12/21 04:00 11/12/21 08:54 Temperature 97.4 F L 98.4 F Pulse Rate 81 86 Respiratory Rate 17 14 Blood Pressure 129/84 143/93 H Pulse Oximetry 98 100 Oxygen Delivery Method Room Air Oxygen Flow Rate 0 Narrative Exam Narrative: Patient is sleepy/sedated. Breathing comfortably. Objective Labs Result Diagrams: 11/12/21 07:00 11/12/21 07:00 Labs: Laboratory Results - last 24 hr 11/12/21 11/12/21 11/12/21 07:00 07:00 07:00 WBC 4.9 RBC 2.88 L Hgb 10.4 L Hct 29.7 L MCV 103.3 H MCH 36.3 H MCHC 35.1 RDW 13.5 Plt Count 123 L Neut % (Auto) 66.1 Lymph % (Auto) 17.3 L [place] % (Auto) 14.4 H Eos % (Auto) 0.9 L Baso % (Auto) 1.3 Neut # (Auto) 3200 Lymph # (Auto) 800 L [place] # (Auto) 700 Eos # (Auto) 0 Baso # (Auto) 100 PT 11.4 INR 1.0 Sodium 128 L Potassium 3.5 Chloride 101 Carbon Dioxide 25 BUN 5 L Creatinine 0.42 L Estimated GFR > 60 BUN/Creatinine Ratio 11.9 Glucose 113 H Calcium 8.0 L [facility] Medical History Alcohol abuse Alcohol withdrawal seizure Tobacco dependence Family History Mother Alcohol dependence Brother Coronary artery disease Father Coronary artery disease Social History household members: significant other Smoking Status: Current every day smoker alcohol intake: current Assessment & Plan Assessment & Plan narrative: 1. Recurrent seizures prior to admission -initially secondary to ETOH withdrawal and was admitted to [facility] for 1 week, discharge 11/09, had a seizure just a couple hours after leaving hospital, seen at [facility] and treated with phenobarbital, declined admission and then ended up here with another seizure -last ETOH was over a week ago and probably these more recent seizures may be from benzodiazepine withdrawal rather than ETOH withdrawal -continue Librium taper, taper to 25 mg t.i.d. -received info on outpatient alcohol treatment resources 2. Right distal clavicle fracture with mild displacement, present on admission -this can be nonsurgically managed, provided sling for comfort and immobilization -instructed in ROM exercises, dangling arm and gently moving arm in circles -recommended outpatient Ortho follow-up 3. Anemia and thrombocytopenia secondary to alcohol dependency, chronic -continue daily thiamin and folic acid 4. Hypokalemia, corrected -received IV and oral potassium replacement 5. Hyponatremia, present on admission, likely chronic -continue NS hydration 6. Acute right hip subtrochanteric/intertrochanteric fracture with displacement -occurred from [facility] in hospital on 11/11 -ortho consult -NPO awaiting surgery 6. Moderate to severe chronic protein calorie malnutrition secondary to alcoholism -BMI 19 -address underlying cause 7. Nicotine dependency -encouraged to quit smoking, provided nicotine patch Time Spent With Patient Critical Care time: I spent a total of [] minutes of critical care time on this patient's care today; this time is exclusive of procedural time.
[2021-11-12 09:56] LABS: Magnesium 1.7 mg/dL (1.6-2.3)
[2021-11-12] MEDS: GABAPENTIN 300 MG CAPSULE PO (11:27)
[2021-11-12] MEDS: LACTATED RINGERS 1,000 ML 42 ML IV (11:46)
--- NOTE | 2021-11-12 12:02 | PC.NURSE ---
Addendum entered by Yesenia Jordan R.N. 11/12/21 14:57: Patient back to room 1436, BP 116/80, HR 90, RA with SpO2 100%. Sleeping but does awaken to voice, denies pain, able to state where he is and what surgery he had done. K and Mg riders hung and infusing at this time. Call light within reach, bed alarm is on. Original Note: Day Shift Note Pt very drowsy and sleepy but awakens to voice, able to follow directions and make needs known. Requested pain medication for right hip pain 11/17, Tylenol administered and pt instructed on when [place] was next available, acknowledged understanding. Pt sleeping soundly with even, nonlabored breathing, FLACC 0 after Tylenol administered. Pt down for surgery at 1140, attempted to use urinal prior to leaving for surgery but unsuccessful, took gabapentin without issue.
[2021-11-12] MEDS: CEFAZOLIN 2 GM/20 ML SYRINGE IV (12:14)
--- NOTE | 2021-11-12 12:30 | DI.RAD.S_ITS ---
PROCEDURE: XR HIP W PEL IF DONE RT 2V INDICATIONS: HIP SURGERY TECHNIQUE: 4 intraoperative images of the right hip were submitted for review. COMPARISON: [facility], CR, XR HIP W PEL IF DONE RT 2V, 11/12/2021, 5:38. FINDINGS/IMPRESSION: Status post ORIF with intramedullary ronald fixation and 2 traversing screw placements of the proximal femur. The previously noted fracturing of the proximal femur is known in near anatomic alignment. Expected postsurgical changes without evidence of immediate hardware complication. Dictated by: Alirio Brewer D.O. on 11/12/2021 at 12:36 Approved by: Alirio Brewer D.O. on 11/12/2021 at 12:39
--- NOTE | 2021-11-12 12:35 | SUR.OPER ---
Supine on padded [place] table with operative leg secured in padded positioning boot and suspended in positioning spar, operative leg in traction per surgeon. Non operative leg in well leg looney, padded with gel and secured with strap. Head on one pillow with donut. Arm on non-operative side secured on padded armboard <90 degrees abduction. Arm on operative side padded and resting across chest then secured with tape over sheet. Padded perineal post in place per surgeon. Gentials free from pressure. Tape across torso. Directed and approved by surgeon.
[2021-11-12] MEDS: BUPIVACAINE 0.5% (PF) 30 ML, EPINEPHrine 0.15 MG INJ (12:53)
--- NOTE | 2021-11-12 13:36 | P.OP_ITS ---
Operative Date/Time/Diagnoses Date of procedure: 11/12/21 Time of procedure: 13:36 Pre-op diagnosis: Right closed, displaced, intertrochanteric/subtrochanteric proximal femoral fracture Post-op diagnosis: same Procedure & Clinicians Procedure: Fixation of subtrochanteric/intertrochanteric fracture with intramedullary hip screw device Same procedure as scheduled: Yes Indications: The patient is a 51-year-old gentleman who fell this morning attempting to get out of bed in the hospital. He sustained the above-noted hip fracture and has agreed to fixation with intramedullary hip screw after discussion the risks benefits and alternatives as documented in my consultation note. Surgeon: Tj Morrison Click Yes if Unassisted: Yes Anesthesia Type: General and Local Operative Notes Findings: Anatomic alignment of the fracture. Closure Type: primary Specimen(s): none sent Prosthetic devices, grafts, tissues, transplants, or devices: Implants used in this procedure manufactured by the [employer] and included a 13 mm x 18 cm 125 degree Trigen Intertan nail system with integra janneth lagand compression screws measuring 110 mm and 105 mm respectively and a 5.0 mm x 35 mm distal interlock screw. Applied: implant(s) Estimated Blood Loss (mL): 200 Blood products transfused: none Procedure in detail: The patient was seen in the preoperative area where he confirmed the right hip as the operative site and this was marked with my initials. Was taken to the operating room on his hospital bed. He underwent a general anesthetic on his bed in the was transferred to the fracture table. The right leg was placed in a traction leg looney the left leg was placed in the well leg looney and flexed and abducted out of the way. Traction was applied to the operative extremity to reduce the fracture. His arms were ?papoosed to keep them out of the way of the fluoroscopy. He received preoperative antibiotics and a real time analyst-out was performed. Reduction of the fracture was verified on the AP and lateral views using fluoroscopy. The lateral aspect of the right leg was prepared with ChloraPrep in the usual fashion and draped with a vertical adherent drape. An approximately 4 cm incision was created just proximal to the greater trochanter and the fascia sonal incised. A guide pin was placed on the tip of the greater trochanter and advanced into the intramedullary canal. This was confirmed as being intramedullary on the AP and lateral views. A starter Reamer was used. The long guide ronald was placed and the flexible reamers used as sounds to determ ine the diameter of the femoral shaft. It was determined that his leg would accommodate the largest, 13 mm nail. This was applied to the sighting guide and placed over the guide ronald and advanced into the femur. The guide ronald was removed once the tip of the ronald had passed the fracture site. The ronald was advanced to the appropriate depth. The guide for the lag screw was placed and a guide pin placed into the center portion of the femoral head. This was confirmed as being in the central portion of the head on the AP and lateral views. This was measured and the appropriate lag screw/compression screw combination was opened. The hole for the compression screw was drilled. The anti rotation device was placed and the hole for the lag screw was drilled. The lag screw was placed within a cm of the apex of the femoral head on the AP and lateral views. The compression screw was then placed. Finally the distal interlock screw was placed using the out interventional technologist guide. The guide was then re moved and the position of the fracture and all hardware was verified as being appropriate in the AP and lateral views. The wounds were irrigated with sterile saline. The fascia sonal was closed with running 0 Vicryl, subcutaneous layer in all wounds was closed with interrupted 3-0 Vicryl and the skin was closed with nancy. Total of 20 mL 0.5% Marcaine was injected into the soft tissues for postoperative pain control. Dressings of Xeroform, sterile 4x4s, an ABD and adhesive tape were applied. The patient was then allowed to awaken from his anesthetic in the operating room and taken to the recovery room in good condition having tolerated the procedure well. Complications: none Post-operative Condition: stable Disposition: PACU Plan for aftercare: The patient will be allowed to weight bear as tolerated. He likely will be in the hospital for an additional day or 2. [facility]. This likely will take place in a day or 2 after he has started physical therapy here.
[2021-11-12] MEDS: HYDRALAZINE 20 MG/ML VIAL 5 MG IV (14:02)
--- NOTE | 2021-11-12 14:05 | SUR.PHASEI ---
11/12/21-1330-bp rechecked and remains elevated. Dr. Cardoza aware,no orders-to watch for now.
--- NOTE | 2021-11-12 14:06 | SUR.PHASEI ---
11/12/21-1400- bp remains up. patient had c/o rt hip pain, but returned to sleep. Hydralazine ivp for bp given. continue to monitor/observe.
--- NOTE | 2021-11-12 14:50 | SUR.PHASEI ---
11/12/2146-3823-nceaurl easily aroused. speech clearer.able to focus on staff member better. aware surgery is over and at [facility]. vss after hydralazine for bp. pain meds held.not c/o pain at present. drowsy still. dressing rt lateral hip cdi. no drains. po ice chips tolerated. csm RLE wnl for patient. Report to Deepa Chavarria RN by phone,questions answererd. transfer to floor,no belongings . 1438-in room 226. padded rails maintained. side rails x 4 up. Rn at bedside to recieve. 1st vital signs on floor stable.
[2021-11-12] MEDS: MAGNESIUM SULFATE 2 GM/50 ML PIGGYBACK IV (14:53)
[2021-11-12] MEDS: POTASSIUM CHLORIDE IN WATER 10 MEQ/100 ML PIGGYBACK 100 MEQ IV ×2 (14:56→16:06)
[2021-11-12] MEDS: chlordiazePOXIDE 25 MG CAPSULE PO ×2 (17:18→20:52)
[2021-11-12] MEDS: OXYCODONE IR 5 MG TABLET PO ×2 (17:18→20:51)
--- NOTE | 2021-11-12 18:11 | PC.NURSE ---
HOME MEDS Home meds sent to pharmacy.
[2021-11-12] MEDS: ASPIRIN EC 81 MG TABLET PO (20:52)
[2021-11-13] VITALS (7 sets, daily range): BP systolic 96–125; BP diastolic 65–80; PULSE 89–106; RESP 16–20; TEMP 36.7–37.6; O2SAT 97–100
[2021-11-13 05:32] LABS: Hematocrit 24.9 % (41-53); Hemoglobin 8.7 g/dL (13.5-17.5); Mean Corpuscular HGB Conc 35.1 % (30-36); Mean Corpuscular Volume 102.5 fL (80-100); Platelet Count 136 X10^3/uL (150-400); Red Blood Cell Count 2.43 X10^6/uL (4.5-5.9); Red Cell Distribution Width 13.3 % (11.6-14.8); White Blood Cell Count 6.4 X10^3/uL (4.5-11.0)
[2021-11-13 05:40] LABS: BUN Creatinine Ratio 11.6 (6-22); Blood Urea Nitrogen 5 mg/dL (9-20); Calcium 7.9 mg/dL (8.4-10.2); Carbon Dioxide 27 mmol/L (22-32); Chloride 98 mmol/L (98-107); Estimated Glomerular Filt Rate > 60 mL/min (>60); Glucose 110 mg/dL (70-100); HEMOLYSIS < 15 (0-50); Potassium 3.7 mmol/L (3.4-5.1); Sodium 125 mmol/L (137-145)
--- NOTE | 2021-11-13 07:57 | PM.PNPO.1 ---
Subjective Subjective Date Patient Seen: 11/13/21 Time Patient Seen: 07:57 Interval history: Patient is complaining of moderate right hip pain this morning. He denies any new numbness or tingling. His pain is relatively well controlled. He is being managed by the hospitalist for his alcohol withdrawal seizures. He sustained his hip fracture in the hospital, while getting up unassisted. Exam Vital Signs (past 8 hours): - 11/13/21 00:00 11/13/21 04:00 Temperature 99.6 F 98.8 F Pulse Rate 106 H 93 H Respiratory Rate 17 20 Blood Pressure 96/66 104/65 Pulse Oximetry 99 97 Oxygen Delivery Method Room Air Oxygen Flow Rate 0 Narrative Exam Narrative: Pleasant but frail 51-year-old male, resting comfortably in bed, no acute distress. Dressing demonstrates some proximal serosanguineous drainage, no surrounding erythema or induration. Bilateral lower extremity: Motor functions are grossly intact, sensation is grossly intact to light touch, calves are soft and nontender to palpation. Objective Labs Result Diagrams: 11/13/21 04:55 11/13/21 05:00 Labs: Laboratory Results - last 24 hr 11/12/21 11/12/21 11/13/21 07:00 07:00 04:55 WBC 6.4 RBC 2.43 L Hgb 8.7 L Hct 24.9 L MCV 102.5 H MCH 36.0 H MCHC 35.1 RDW 13.3 Plt Count 136 L Sodium 128 L Potassium 3.5 Chloride 101 Carbon Dioxide 25 BUN 5 L Creatinine 0.42 L Estimated GFR > 60 BUN/Creatinine Ratio 11.9 Glucose 113 H Calcium 8.0 L Magnesium 1.7 11/13/21 05:00 WBC RBC Hgb Hct MCV MCH MCHC RDW Plt Count Sodium 125 L Potassium 3.7 Chloride 98 Carbon Dioxide 27 BUN 5 L Creatinine 0.43 L Estimated GFR > 60 BUN/Creatinine Ratio 11.6 Glucose 110 H Calcium 7.9 L Magnesium 2.0 PFSH Medical History Alcohol abuse Alcohol withdrawal seizure Tobacco dependence Family History Mother Alcohol dependence Brother Coronary artery disease Father Coronary artery disease Social History household members: significant other Smoking Status: Current every day smoker alcohol intake: current Assessment & Plan Post-op Postoperative Procedures: Procedures Operation Date: 11/12/21 11:15 Actual Procedure Side Surgeon p Intramedullary Nailing Femur Tj Morrison MD Postoperative day: 1 Postoperative status narrative: Stable status post right hip intramedullary nailing of the femur -alcohol withdrawal seizures, nicotine dependence Postoperative plan narrative: -right hip mobilize with physical therapy. Weightbearing as tolerated with front wheel walker -aspirin 81 mg b.i.d. x6 weeks for DVT prophylaxis -continue with multimodal pain management -dressing change, please call me if there is any active drainage -appreciate the hospitalist medical management of his withdrawal seizures and nicotine dependence -disposition likely to SNF, depending on hospitalist recommendation
[2021-11-13] MEDS: NICOTINE 21 MG PATCH TOP (08:28)
[2021-11-13] MEDS: ASPIRIN EC 81 MG TABLET PO ×2 (08:30→21:57)
[2021-11-13] MEDS: chlordiazePOXIDE 25 MG CAPSULE PO ×2 (08:30→15:50)
[2021-11-13] MEDS: ACETAMINOPHEN 325 MG TABLET 650 MG PO ×3 (08:30→22:14)
[2021-11-13] MEDS: OXYCODONE IR 5 MG TABLET PO ×3 (08:31→22:10)
[2021-11-13] MEDS: FOLIC ACID 1 MG TABLET PO (08:31)
[2021-11-13] MEDS: THIAMINE 100 MG TABLET PO (08:31)
[2021-11-13] MEDS: MULTIVITAMIN 1 TABLET 1 TAB PO (08:31)
--- NOTE | 2021-11-13 09:38 | PM.PN.1 ---
Subjective Subjective Date Patient Seen: 11/13/21 Interval history: 51-year-old alcoholic male admitted with recurrent seizures due to ETOH/benzo withdrawal. He was getting up in hospital room unassisted and fell and broke his right hip. Also has fracture of right distal clavicle present prior to admission. Patient is pod 1 right hip ORIF. He is alert oriented and cooperative this morning. He complains of moderate right hip pain. No signs of acute withdrawal on t.i.d. Librium. Exam Vital Signs (past 8 hours): - 11/13/21 04:00 Temperature 98.8 F Pulse Rate 93 H Respiratory Rate 20 Blood Pressure 104/65 Pulse Oximetry 97 Oxygen Delivery Method Room Air Oxygen Flow Rate 0 Narrative Exam Narrative: General: Alert and cooperative not in severe distress Breathing nonlabored No distal extremity edema Well oriented, not shaky or appearing anxious Objective Labs Result Diagrams: 11/13/21 04:55 11/13/21 05:00 Labs: Laboratory Results - last 24 hr 11/12/21 11/13/21 11/13/21 07:00 04:55 05:00 WBC 6.4 RBC 2.43 L Hgb 8.7 L Hct 24.9 L MCV 102.5 H MCH 36.0 H MCHC 35.1 RDW 13.3 Plt Count 136 L Sodium 125 L Potassium 3.7 Chloride 98 Carbon Dioxide 27 BUN 5 L Creatinine 0.43 L Estimated GFR > 60 BUN/Creatinine Ratio 11.6 Glucose 110 H Calcium 7.9 L Magnesium 1.7 2.0 [facility] Medical History Alcohol abuse Alcohol withdrawal seizure Tobacco dependence Family History Mother Alcohol dependence Brother Coronary artery disease Father Coronary artery disease Social History household members: significant other Smoking Status: Current every day smoker alcohol intake: current Assessment & Plan Assessment & Plan narrative: 1. Recurrent seizures prior to admission -initially secondary to ETOH withdrawal and was admitted to [facility] for 1 week, discharge 11/09, had a seizure just a couple hours after leaving hospital, seen at [facility] and treated with phenobarbital, declined admission and then ended up here with another seizure -last ETOH was over a week ago and probably these more recent seizures may be from benzodiazepine withdrawal rather than ETOH withdrawal -continue Librium taper, tapered to 25 mg t.i.d. on November 12 -received info on outpatient alcohol treatment resources 2. Right distal clavicle fracture with mild displacement, present on admission -this can be nonsurgically managed, provided sling for comfort and immobilization -instructed in ROM exercises, dangling arm and gently moving arm in circles -recommended outpatient Ortho follow-up 3. Anemia and thrombocytopenia secondary to alcohol dependency, chronic -continue daily thiamin and folic acid 4. Hypokalemia, corrected -received IV and oral potassium replacement -also received IV magnesium for low normal Mg 5. Hyponatremia, present on admission, likely chronic -continue NS hydration 6. Acute right hip subtrochanteric/intertrochanteric fracture with displacement -occurred from [facility] in hospital on 11/12 -status post ORIF on 11/12 -PT/OT 6. Moderate to severe chronic protein calorie malnutrition secondary to alcoholism -BMI 19 -address underlying cause 7.? Nicotine dependency -encouraged to quit smoking, provided nicotine patch Time Spent With Patient Critical Care time: I spent a total of [] minutes of critical care time on this patient's care today; this time is exclusive of procedural time.
--- NOTE | 2021-11-13 10:35 | PT.IIE ---
Current Diagnoses Alcohol abuse, uncomplicated (11/11/21) Alcohol dependence with withdrawal, unspecified (11/11/21) Nicotine dependence, unspecified, uncomplicated (11/11/21) Unspecified convulsions (11/11/21) Surgery Performed Operation Date: 11/12/21 11:15 Actual Procedures p Intramedullary Nailing Femur - Tj Morrison MD Medical History (Last Reviewed 11/13/21 @ 07:58 by Leona Villaseñor PA-C) Alcohol abuse Alcohol withdrawal seizure Tobacco dependence Physical Therapy Inpatient Evaluation/Re-Eval M1 PT/OT-IP Prior Functional Status Start: 11/13/21 08:33 Freq: NEEDED Status: Active Protocol: Document 11/13/21 10:35 AW (Rec: 11/13/21 11:26 AW [id number]) Medical Review Prior Functional Status Medical History Reviewed Yes Communication Pt is able to make his needs known but with a great deal of confusion. Mobility and Gait Pt reports independent mobility at baseline. He denies falls but is a difficult historian. Activities of Daily Living and IADL's Pt states he is independent with ADL's Social History Household Members significant other Living Arrangements RV Number of Floors (Floors) One Floor Number of Stairs To Enter/Railing? 2 TANYA with narrow bilateral rails. Home Environment Standard Height Toilet,Walk in Shower,Narrow Doors Employment Status Unemployed Additional Social History Comment Pt lives in an RV with his partner, Christo. Per pt, Christo is available and able to provide assist. Pt notes a walker may not fit in the RV. M2 PT-IP Current Condition Start: 11/13/21 08:33 Freq: NEEDED Status: Active Protocol: Document 11/13/21 10:35 AW (Rec: 11/13/21 11:26 AW [id number]) Physical Therapy Current Condition Current Condition Evaluation Date 11/13/21 Treatment Diagnosis R femur fx s/p IMN; R clavicle fx; EtOT w/d, seizures; difficulty walking Onset Date 11/11/21 M3 PT-IP Subjective Start: 11/13/21 08:33 Freq: NEEDED Status: Active Protocol: Document 11/13/21 10:35 AW (Rec: 11/13/21 11:26 AW [id number]) Subjective Physical Therapy Visit Type Type Initial Evaluation Visit Start Time 10:06 Visit Stop Time 10:35 Total Visit Minutes 29 Notes No WB restrictions for RUE. WBAT for RLE per ortho. Physical Therapy Visit Comments Patient Comments Pt is willing to participate with PT Patient Goals Not articulated. Therapy Pain Assessment Pain When Pain Assessed During Mobility Pain Present Pain Present Pain Reported Location RT hip/femur Intensity 8 Scale Used 6/10 at rest Pain Behaviors Facial Grimacing,Guarding, Restlessness Pain Management Techniques Apply Cold,Distraction, Modification of Treatment,Re- positioning,Timing of Activity with Medications Shoulder Scale Used not quantified M4 PT-IP Mobility and Gait Start: 11/13/21 08:33 Freq: NEEDED Status: Active Protocol: Document 11/13/21 10:35 AW (Rec: 11/13/21 11:26 AW [id number]) PT-Bed Mobility Assessment Supine to Sit Supine to Sit Moderate Assistance,1 Person Assistance,Head of Bed Elevated Scooting Scooting to Edge of Bed Minimal Assistance PT-Transfer Assessment Sit to and From Stand Sit to and from Stand Moderate Assistance,Maximum Assistance,1 Person Assistance ,Use of Upper Extremities Equipment Transfer Assistive Device Gait Belt,Front Wheeled Walker Orthotic/Prosthetic Devices or Brace: No Transfers Transfer Destination Chair Transfer Technique Stand Step Pivot Transfer Ability Level of Assist Maximum Assistance,1 Person Assistance,2 Person Assistance ,Use of Upper Extremities Comments Mobility Comments Pt was lying in bed as PT arrived. BP 107/67 HR 90. With HOB at 25 degrees, pt needed mod assist to move legs toward left side of the bed and to right his trunk, min A to scoot forward for feet flat on floor. Pt denied any lightheadedness and VS were stable. Pt stood mod A, using LUE to push off the bed as R hand rested on the walker frame. In standing, pt was willing to put some weight through the RUE to offload RLE . He attempted to shift weight laterally, but his knees buckled and he was instructed to sit. Pt stood again from the bed mod A and needed max A to transfer to the chair set up on his left. During transfer, pt was impulsive and severely flexed at the waist and hips; he was unable to respond to cues for upright posture as he complained of increased pain. Pt sat with poorly-controlled descent. He was positioned on the chair and agreed to call for mobility assist. Pt's personal phone was on the tray table in front of him as PT departed . Gait Assessment Gait Gait Assistance Required: Maximum Assistance,2 Person Assist Able to Maintain Weight Bearing Status Yes During Gait Assistive Devices Assistive Device Gait Belt,Front Wheeled Walker Comments Gait Comments Steps taken during transfer only. RLE weightbearing was limited. Stair Climbing Assessment Comments Stair Climbing Comments Not assessed as pt was unsafe to ambulate. PT-Balance Assessment Sitting Balance and Reactions Static Sitting Balance Ability Good Dynamic Sitting Balance Ability Fair Standing Balance and Reactions Static Standing Balance Ability Poor Dynamic Standing Balance Ability Poor Device Used FWW M5 PT-IP Objective Assessments Start: 11/13/21 08:33 Freq: NEEDED Status: Active Protocol: Document 11/13/21 10:35 AW (Rec: 11/13/21 11:26 AW [id number]) Orientation Orientation/Cognition Level of Alertness Confusional State Orientation Name,Day of Week,Place, Situation Language Function Ability Garbled Speech,Word Finding Difficulties Safety Awareness Decreased Safety Awareness Memory Description Short Term Impaired Comments Pt repeated himself frequently . He needed cues to turn his phone toward him when trying to send a text. Gross Range of Motion Upper Extremity ROM Assessment Right Impaired Lower Extremity ROM Assessment Right Impaired Strength Lower Extremity Strength Assessment Bilaterally Impaired Hip L 4-/5; R 3-/5 Knee L 4-/5; R 3/5 Coordination Assessment Gross Coordination Gross Coordination Impaired Assessment Finger to Nose Test Moderate Impairment Pronation/Supination Test Moderate Impairment Foot Tapping Test Moderate Impairment Sensation Assessment Sensation Gross Sensation WNL Muscle Tone Muscle Tone WNL Yes M6 PT-IP Treatment Start: 11/13/21 08:33 Freq: NEEDED Status: Active Protocol: Document 11/13/21 10:35 AW (Rec: 11/13/21 11:26 AW [id number]) Physical Therapy Treatment Exercises Exercises Ankle Pumps,Heel Slides Education Education Provided Weight Bearing Status,Post-Op Packet,Safety M7 PT-IP Assessment and Plan Start: 11/13/21 08:33 Freq: NEEDED Status: Active Protocol: Document 11/13/21 10:35 AW (Rec: 11/13/21 11:26 AW [id number]) PT Summary Assessment and Plan Potential Rehabilitation Potential Fair Status of Condition at Evaluation Evolving Summary Impairments Pain,ROM,Strength,Balance, Coordination,Cognition,Bed Mobility,Transfers,Gait Assessment Summary Matty is a 51 yo man seen for PT evaluation on POD1 following IM nail for right intertrochanteric femur fracture. He was being treated for alcohol withdrawal and seizures when he fell from his hospital bed yesterday while trying to get up unassisted. Prior to this fall, pt sustained a right distal clavicle fracture - likely during a seizure. Per pt report, he is independently mobile at baseline. He has a significant history of alcohol dependence and is confused during this assessment. He has a partner, Christo, who lives with him in their RV in [place]. He is concerned that a walker would not fit in the RV. Today, pt is requiring max assist x 2 for transfers with FWW. Pt would certainly benefit from skilled rehab and 24/ assist with mobility but unfortunately, insurance limitations may dictate a discharge to home. PT recommends SNF vs acute rehab. PT will continue to assess for safe discharge plan and will initiate caregiver training with pt's partner as soon as possible in the event that a rehab stay is not possible. Goals Bed Mobility Goal Standby Assistance Transfer Goal Minimal Assistance,Front Wheeled Walker Gait Goal Minimal Assistance,Front Wheel Walker Gait Distance 75 Other Goals - up/down 2 steps with B rails min A Days to Meet Goals 10 Frequency of Treatment Frequency Of Treatment Twice a Day Treatment Plan Physical Therapy Treatment Plan Bed Mobility Training,Transfer Training,Gait Training, Therapeutic Exercise,Balance Retraining,Post Op Education, Discharge Planning,Hot or Cold Pack,Neuromuscular Re-ed, Coordination Retraining Other Recommendations and Next Treatment - requested OT order from [facility] - transfers, caregiver training Precautions Other Precautions seizures, falls Weight Bearing Status Weight Bearing Status Weight Bear as Tolerated Allowed Weight Bearing Amount (enter % WBAT RLE and RUE or #) (%) Recommendations To Nursing Amount of Assist Needed 2 Person Assist Discharge Recommendations PT Discharge Recommendations Home with 24 Assist Available,Home Health,SNF Rehab,Acute Rehab,Home vs SNF, SNF vs Acute Rehab Equipment Needed for Home Before RTS, FWW (if RV will Discharge accommodate) Transportation Needs at Discharge Private Vehicle,Wheelchair/ Cabulance
--- NOTE | 2021-11-13 10:35 | PT.IIE ---
Current Diagnoses Alcohol abuse, uncomplicated (11/11/21) Alcohol dependence with withdrawal, unspecified (11/11/21) Nicotine dependence, unspecified, uncomplicated (11/11/21) Unspecified convulsions (11/11/21) Surgery Performed Operation Date: 11/12/21 11:15 Actual Procedures p Intramedullary Nailing Femur - Tj Morrison MD Medical History (Last Reviewed 11/13/21 @ 07:58 by Leona Villaseñor PA-C) Alcohol abuse Alcohol withdrawal seizure Tobacco dependence Physical Therapy Inpatient Evaluation/Re-Eval M1 PT/OT-IP Prior Functional Status Start: 11/13/21 08:33 Freq: NEEDED Status: Active Protocol: Document 11/13/21 10:35 AW (Rec: 11/13/21 11:26 AW [id number]) Medical Review Prior Functional Status Medical History Reviewed Yes Communication Pt is able to make his needs known but with a great deal of confusion. Mobility and Gait Pt reports independent mobility at baseline. He denies falls but is a difficult historian. Activities of Daily Living and IADL's Pt states he is independent with ADL's Social History Household Members significant other Living Arrangements RV Number of Floors (Floors) One Floor Number of Stairs To Enter/Railing? 2 TANYA with narrow bilateral rails. Home Environment Standard Height Toilet,Walk in Shower,Narrow Doors Employment Status Unemployed Additional Social History Comment Pt lives in an RV with his partner, Christo. Per pt, Christo is available and able to provide assist. Pt notes a walker may not fit in the RV. M2 PT-IP Current Condition Start: 11/13/21 08:33 Freq: NEEDED Status: Active Protocol: Document 11/13/21 10:35 AW (Rec: 11/13/21 11:26 AW [id number]) Physical Therapy Current Condition Current Condition Evaluation Date 11/13/21 Treatment Diagnosis R femur fx s/p IMN; R clavicle fx; EtOT w/d, seizures; difficulty walking Onset Date 11/11/21 M3 PT-IP Subjective Start: 11/13/21 08:33 Freq: NEEDED Status: Active Protocol: Document 11/13/21 10:35 AW (Rec: 11/13/21 11:26 AW [id number]) Subjective Physical Therapy Visit Type Type Initial Evaluation Visit Start Time 10:06 Visit Stop Time 10:35 Total Visit Minutes 29 Notes No WB restrictions for RUE. WBAT for RLE per ortho. Physical Therapy Visit Comments Patient Comments Pt is willing to participate with PT Patient Goals Not articulated. Therapy Pain Assessment Pain When Pain Assessed During Mobility Pain Present Pain Present Pain Reported Location RT hip/femur Intensity 8 Scale Used 6/10 at rest Pain Behaviors Facial Grimacing,Guarding, Restlessness Pain Management Techniques Apply Cold,Distraction, Modification of Treatment,Re- positioning,Timing of Activity with Medications Shoulder Scale Used not quantified M4 PT-IP Mobility and Gait Start: 11/13/21 08:33 Freq: NEEDED Status: Active Protocol: Document 11/13/21 10:35 AW (Rec: 11/13/21 11:26 AW [id number]) PT-Bed Mobility Assessment Supine to Sit Supine to Sit Moderate Assistance,1 Person Assistance,Head of Bed Elevated Scooting Scooting to Edge of Bed Minimal Assistance PT-Transfer Assessment Sit to and From Stand Sit to and from Stand Moderate Assistance,Maximum Assistance,1 Person Assistance ,Use of Upper Extremities Equipment Transfer Assistive Device Gait Belt,Front Wheeled Walker Orthotic/Prosthetic Devices or Brace: No Transfers Transfer Destination Chair Transfer Technique Stand Step Pivot Transfer Ability Level of Assist Maximum Assistance,1 Person Assistance,2 Person Assistance ,Use of Upper Extremities Comments Mobility Comments Pt was lying in bed as PT arrived. BP 107/67 HR 90. With HOB at 25 degrees, pt needed mod assist to move legs toward left side of the bed and to right his trunk, min A to scoot forward for feet flat on floor. Pt denied any lightheadedness and VS were stable. Pt stood mod A, using LUE to push off the bed as R hand rested on the walker frame. In standing, pt was willing to put some weight through the RUE to offload RLE . He attempted to shift weight laterally, but his knees buckled and he was instructed to sit. Pt stood again from the bed mod A and needed max A to transfer to the chair set up on his left. During transfer, pt was impulsive and severely flexed at the waist and hips; he was unable to respond to cues for upright posture as he complained of increased pain. Pt sat with poorly-controlled descent. He was positioned on the chair and agreed to call for mobility assist. Pt's personal phone was on the tray table in front of him as PT departed . Gait Assessment Gait Gait Assistance Required: Maximum Assistance,2 Person Assist Able to Maintain Weight Bearing Status Yes During Gait Assistive Devices Assistive Device Gait Belt,Front Wheeled Walker Comments Gait Comments Steps taken during transfer only. RLE weightbearing was limited. Stair Climbing Assessment Comments Stair Climbing Comments Not assessed as pt was unsafe to ambulate. PT-Balance Assessment Sitting Balance and Reactions Static Sitting Balance Ability Good Dynamic Sitting Balance Ability Fair Standing Balance and Reactions Static Standing Balance Ability Poor Dynamic Standing Balance Ability Poor Device Used FWW M5 PT-IP Objective Assessments Start: 11/13/21 08:33 Freq: NEEDED Status: Active Protocol: Document 11/13/21 10:35 AW (Rec: 11/13/21 11:26 AW [id number]) Orientation Orientation/Cognition Level of Alertness Confusional State Orientation Name,Day of Week,Place, Situation Language Function Ability Garbled Speech,Word Finding Difficulties Safety Awareness Decreased Safety Awareness Memory Description Short Term Impaired Comments Pt repeated himself frequently . He needed cues to turn his phone toward him when trying to send a text. Gross Range of Motion Upper Extremity ROM Assessment Right Impaired Lower Extremity ROM Assessment Right Impaired Strength Lower Extremity Strength Assessment Bilaterally Impaired Hip L 4-/5; R 3-/5 Knee L 4-/5; R 3/5 Coordination Assessment Gross Coordination Gross Coordination Impaired Assessment Finger to Nose Test Moderate Impairment Pronation/Supination Test Moderate Impairment Foot Tapping Test Moderate Impairment Sensation Assessment Sensation Gross Sensation WNL Muscle Tone Muscle Tone WNL Yes M6 PT-IP Treatment Start: 11/13/21 08:33 Freq: NEEDED Status: Active Protocol: Document 11/13/21 10:35 AW (Rec: 11/13/21 11:26 AW [id number]) Physical Therapy Treatment Exercises Exercises Ankle Pumps,Heel Slides Education Education Provided Weight Bearing Status,Post-Op Packet,Safety M7 PT-IP Assessment and Plan Start: 11/13/21 08:33 Freq: NEEDED Status: Active Protocol: Document 11/13/21 10:35 AW (Rec: 11/13/21 11:26 AW [id number]) PT Summary Assessment and Plan Potential Rehabilitation Potential Fair Status of Condition at Evaluation Evolving Summary Impairments Pain,ROM,Strength,Balance, Coordination,Cognition,Bed Mobility,Transfers,Gait Assessment Summary Matty is a 51 yo man seen for PT evaluation on POD1 following IM nail for right intertrochanteric femur fracture. He was being treated for alcohol withdrawal and seizures when he fell from his hospital bed yesterday while trying to get up unassisted. Prior to this fall, pt sustained a right distal clavicle fracture - likely during a seizure. Per pt report, he is independently mobile at baseline. He has a significant history of alcohol dependence and is confused during this assessment. He has a partner, Christo, who lives with him in their RV in [place]. He is concerned that a walker would not fit in the RV. Today, pt is requiring max assist x 2 for transfers with FWW. Pt would certainly benefit from skilled rehab and 24 assist with mobility but unfortunately, insurance limitations may dictate a discharge to home. PT will continue to assess for safe discharge plan and will initiate caregiver training with pt's partner as soon as possible. Goals Bed Mobility Goal Standby Assistance Transfer Goal Minimal Assistance,Front Wheeled Walker Gait Goal Minimal Assistance,Front Wheel Walker Gait Distance 75 Other Goals - up/down 2 steps with B rails min A Days to Meet Goals 10 Frequency of Treatment Frequency Of Treatment Twice a Day Treatment Plan Physical Therapy Treatment Plan Bed Mobility Training,Transfer Training,Gait Training, Therapeutic Exercise,Balance Retraining,Post Op Education, Discharge Planning,Hot or Cold Pack,Neuromuscular Re-ed, Coordination Retraining Other Recommendations and Next Treatment transfers, caregiver training Focus Precautions Other Precautions seizures, falls Weight Bearing Status Weight Bearing Status Weight Bear as Tolerated Allowed Weight Bearing Amount (enter % WBAT RLE and RUE or #) (%) Recommendations To Nursing Amount of Assist Needed 2 Person Assist Discharge Recommendations PT Discharge Recommendations Home with 31/12 Assist Available,Home Health,SNF Rehab,Home vs SNF Equipment Needed for Home Before RTS, FWW (if RV will Discharge accommodate) Transportation Needs at Discharge Private Vehicle,Wheelchair/ Cabulance
[2021-11-13] MEDS: POTASSIUM CHLORIDE 20 MEQ TAB 40 MEQ PO (11:07)
--- NOTE | 2021-11-13 12:38 | CM.DPC ---
Addendum entered by Mary Whitehead AVINASH 11/13/21 13:42: ADD: Spoke to Carmelita at [facility] Acute rehab, pt's insurance is not a barrier to acceptance but would need to confirm he meets criteria from PT/OT standpoint but they do not anticipate any openings until maybe the end of the week. [facility] called [facility] [place] [facility] [place] and requested review and faxed clinicals for review. Per PT, attempted CG training bedside with pt and Sig Kandy and pt still unable to ambulate safely. Recommendation is Acute Rehab BF Original Note: DCP HH vs SNF planning Per Ortho, pt tolerated hip repair in OR yesterday after fall in the hospital while attempting to ambulate without staff assist and per RN pt more alert today and appropriate to work with PT. Per PT, pt able to use his arm some that has clavicle fx and was able to stand but was not able to mobilize barely at all today but agreeable with [facility] K[facility] Villafuerte to arrive for attempts at CG training to see if home is an option for them and what their needs might be. Recommendation would be SNF or Acute rehab at this time. MD and PT and RN aware that pt's insurance can be a barrier to placement at d/c or possibly even . VITALY contacted following SNFs: [facility]- not contracted with [facility] Medicaid, only Medicare. [facility]- contracted but poor reimbursement and too many Medicaid pts at this time and decline review. [facility]- pt would not meet [facility] criteria for reimbursement at a decent level and therefore they cannot accept at this time as pt does not have other wound care or titration needs. Acute Rehab: [place] called [facility] [place] [place] and [place] [facility] [place] regarding pt status and insurance and requested review to determine if they can accept pt's insurance and if he meets criteria for PT/OT. SW faxed initial referral for review. HH agencies: [facility]- called based on Vendor Calendar rotation and they cannot accept pt's insurance at this time as they are max capped at their Medicaid pt number at this time. [facility]- willing to review to determine if they can accept pt's insurance and his coverage. Faxed initial referral to review. 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 Plan: SW to follow for further PT later today for CG training towards determining a discharge plan and for [facility] review to determine if they can accept if pt discharges home and Acute Inpt Rehab review to determine if they are an option. AVINASH Pascal
--- NOTE | 2021-11-13 13:36 | PT.IPTN ---
Current Diagnoses Alcohol abuse, uncomplicated (11/11/21) Alcohol dependence with withdrawal, unspecified (11/11/21) Nicotine dependence, unspecified, uncomplicated (11/11/21) Unspecified convulsions (11/11/21) Surgery Performed Operation Date: 11/12/21 11:15 Actual Procedures p Intramedullary Nailing Femur - Tj Morrison MD Physical Therapy Treatment Note M2 PT-IP Current Condition Start: 11/13/21 08:33 Freq: NEEDED Status: Active Protocol: Document 11/13/21 10:35 AW (Rec: 11/13/21 11:26 AW [id number]) Physical Therapy Current Condition Current Condition Evaluation Date 11/13/21 Treatment Diagnosis R femur fx s/p IMN; R clavicle fx; EtOT w/d, seizures; difficulty walking Onset Date 11/11/21 M3 PT-IP Subjective Start: 11/13/21 08:33 Freq: NEEDED Status: Active Protocol: Document 11/13/21 13:36 AW (Rec: 11/13/21 13:59 AW [id number]) Subjective Physical Therapy Visit Type Type Treatment Note Visit Start Time 12:57 Visit Stop Time 13:28 Total Visit Minutes 31 Notes Pt's partner, Christo, is present and willing to participate in caregiver training. RN reports pt's partner removed chair alarm and assisted pt to the toilet with FWW in spite of instruction to call for assist and PT recommendation for 2- person assist transfers only. Pt did not fall but admits to near falls. Number of COWLMAN Visits 0 Physical Therapy Visit Comments Patient Comments Pt is willing to participate with PT Patient Goals Pt is open to rehab options and verbalizes better understanding of his limitations. Therapy Pain Assessment Pain When Pain Assessed During Mobility Pain Present Pain Present Pain Reported Location RT hip/femur Intensity 8 Scale Used 6/10 at rest Pain Behaviors Facial Grimacing,Guarding, Restlessness Pain Management Techniques Apply Cold,Distraction, Modification of Treatment,Re- positioning,Timing of Activity with Medications M4 PT-IP Mobility and Gait Start: 11/13/21 08:33 Freq: NEEDED Status: Active Protocol: Document 11/13/21 13:36 AW (Rec: 11/13/21 13:59 AW [id number]) PT-Transfer Assessment Sit to and From Stand Sit to and from Stand Moderate Assistance,Maximum Assistance,1 Person Assistance ,Use of Upper Extremities Equipment Transfer Assistive Device Gait Belt,Front Wheeled Walker Orthotic/Prosthetic Devices or Brace: No Transfers Transfer Destination Chair Transfer Technique sit to stand Transfer Ability Level of Assist Maximum Assistance,2 Person Assistance,Use of Upper Extremities Comments Mobility Comments Pt was sitting up on the recliner with hips and knees flexed, drawn up toward chest as PT arrived. Pt discussed his walk to the bathroom and admitted to near falls. Both pt and his partner verbalized understanding that they should call for 2-person assist for all transfers and that BSC would be recommended as pt is not safe for ambulation. PT instructed pt's SO on gait belt application. Pt agreed to stand from the chair. PT instructed pt in technique. Pt was able to follow directions , pull his feet back toward chair, draw his hips forward to edge of chair, and lean forward. He pushed with LUE as R hand rested on the walker frame and needed max assist to stand. He was able to raise left hand to the walker. Although weight was significantly shifted toward the left, pt was able to find and maintain midline stance for ~20 seconds before needing to sit. Max A was needed to guide left hand toward chair arm for controlled descent. After seated rest 2 minutes, pt agreed to stand again, needing same level of assist and direction. In standing, pt was instructed in weight shifting. He was able to shift weight to the left without complaint but could only minimally shift to the right, complaining of right shoulder and right hip pain. Pt stated he was too tired from having attempted to walk to the bathroom and needed to rest. Pt was assisted back to the chair. Chair alarm was active; call light and tray table in reach. Stair Climbing Assessment Comments Stair Climbing Comments Not assessed as pt was unsafe to ambulate. PT-Balance Assessment Sitting Balance and Reactions Static Sitting Balance Ability Good Dynamic Sitting Balance Ability Fair Standing Balance and Reactions Static Standing Balance Ability Poor Dynamic Standing Balance Ability Poor Device Used FWW M5 PT-IP Objective Assessments Start: 11/13/21 08:33 Freq: NEEDED Status: Active Protocol: Document 11/13/21 10:35 AW (Rec: 11/13/21 11:26 AW [id number]) Orientation Orientation/Cognition Level of Alertness Confusional State Orientation Name,Day of Week,Place, Situation Language Function Ability Garbled Speech,Word Finding Difficulties Safety Awareness Decreased Safety Awareness Memory Description Short Term Impaired Comments Pt repeated himself frequently . He needed cues to turn his phone toward him when trying to send a text. Gross Range of Motion Upper Extremity ROM Assessment Right Impaired Lower Extremity ROM Assessment Right Impaired Strength Lower Extremity Strength Assessment Bilaterally Impaired Hip L 4-/5; R 3-/5 Knee L 4-/5; R 3/5 Coordination Assessment Gross Coordination Gross Coordination Impaired Assessment Finger to Nose Test Moderate Impairment Pronation/Supination Test Moderate Impairment Foot Tapping Test Moderate Impairment Sensation Assessment Sensation Gross Sensation WNL Muscle Tone Muscle Tone WNL Yes M6 PT-IP Treatment Start: 11/13/21 08:33 Freq: NEEDED Status: Active Protocol: Document 11/13/21 13:36 AW (Rec: 11/13/21 13:59 AW [id number]) Physical Therapy Treatment Exercises Exercises Ankle Pumps,Gluteal Sets,Heel Slides Education Education Provided Weight Bearing Status,Post-Op Packet,Safety Brace Education Donning,Patient,Caregiver Other Treatments Other Treatment Performed Educated pt on recommendation to use shoulder sling when not mobilizing. Instructed pt and his partner on donning sling, optimal fit, and rationale for continued use. M7 PT-IP Assessment and Plan Start: 11/13/21 08:33 Freq: NEEDED Status: Active Protocol: Document 11/13/21 13:36 AW (Rec: 11/13/21 13:59 AW [id number]) PT Summary Assessment and Plan Summary Impairments Pain,ROM,Strength,Balance, Coordination,Cognition,Bed Mobility,Transfers,Gait Assessment Summary Matty is more alert this PM and appears to have a better understanding of his mobility limitations. His supportive partner, Christo, was present and participated in limited caregiver training. PT discussed potential discharge scenarios. Pt and his SO do not identify any alternative housing options for discharge. At this time, pt continues to require max A x 1-2 for transfers with FWW and will require acute rehab vs SNF to improve strength and mobility independence. Goals Bed Mobility Goal Standby Assistance Transfer Goal Minimal Assistance,Front Wheeled Walker Gait Goal Minimal Assistance,Front Wheel Walker Gait Distance 75 Other Goals - up/down 2 steps with B rails min A Days to Meet Goals 10 Frequency of Treatment Frequency Of Treatment Twice a Day Treatment Plan Physical Therapy Treatment Plan Bed Mobility Training,Transfer Training,Gait Training, Therapeutic Exercise,Balance Retraining,Post Op Education, Discharge Planning,Hot or Cold Pack,Neuromuscular Re-ed, Coordination Retraining Other Recommendations and Next Treatment - requested OT order from CM Focus - transfers, caregiver training Precautions Other Precautions seizures, falls Weight Bearing Status Weight Bearing Status Weight Bear as Tolerated Allowed Weight Bearing Amount (enter % WBAT RLE and RUE; shoulder or #) (%) sling recommended when not mobilizing Recommendations To Nursing Amount of Assist Needed 2 Person Assist Discharge Recommendations PT Discharge Recommendations Home with 31/12 Assist Available,Home Health,SNF Rehab,Acute Rehab,Home vs SNF, SNF vs Acute Rehab Equipment Needed for Home Before RTS, FWW (if RV will Discharge accommodate) Transportation Needs at Discharge Wheelchair/Cabulance
--- NOTE | 2021-11-13 13:39 | DIET.CONS ---
Addendum entered by Nayla Saul 11/13/21 13:55: Correction: Pt is 18% below UBW, typo below states pt is 18% UBW. Original Note: Dietary Consultation Note Admission Date: 11/11/2021 02:00 Assessment: 51y M admitted for seizure related to medication taper after completing etoh detox at [facility] referred to nutrition for protein calorie malnutrition and alcohol dependence. Met adiel miller pt at bedside, joined by partner Christo midway through visit. Pt originally from [place], spent most life in [facility]. In restaurant industry, recently owned own restaurant. Pt has been drinking 12-18 beers plus large bottle wine daily for past month or more also 2ppd cigarette use. Has been to detox a couple times, feels ready for sobriety, dislikes current life situation. Pt lives in [address] [place] [address] in [place] with functional kitchen (water, electric, gas). Pt was not waking during sleep to drink etoh, but would start first thing in morning to avoid the shakes. Pt reports not eating throughout the day, would have breakfast in evening, usually bowl Cinnamon [place] Crunch cereal with whole milk as only meal. Pt reports UBW 77.2kg, pt with obvious signs protein calorie malnutrition (prominent bony landmarks, underweight for height of 180cm, BMI 19.5). Pt is 18% UBW. Pt recently applied for Medicaid and qualifies, pt without food benefits, pt having trouble affording healthy foods though has capacity and knowledge to cook fresh foods. Pt with good appetite this hospitalization, POs 75-100%. Ht: 180.34 cm Wt: 63.503 kg (-18% UBW) BMI: 19.5 UBW: 77.2kg Last BM: 11/12/21 (11/12/21 11:48) MNA: 7 Álvaro Score: 15 Diet: 11/12/21 Dinner General (Regular) Diet Diet Modifications: Nutrition Percent Meal Consumed 100% 11/12/21 18:26 Percent Meal Consumed 75% 11/11/21 18:00 Labs: RBC 2.43 X10^6/uL (4.5-5.9) L 11/13/21 04:55 Hgb 8.7 g/dL (13.5-17.5) L 11/13/21 04:55 Hct 24.9 % (41-53) L 11/13/21 04:55 Creatinine 0.43 mg/dL (0.66-1.25) L 11/13/21 05:00 Nutrition Diagnosis: Severe Acute on Chronic Protein Calorie Malnutrition r/t etoh dependence and food insecurity aeb pt BMI 19.5, 18% below UBW, pt presents with clavicle and hip fractures, pt using money to purchase etoh and cigarettes due to substance dependence, pt on Medicaid without food benefits, pt detoxing from substances by choice desiring sober living, pt reports one meal daily of breakfast cereal c whole milk. Interventions: 1. Educated pt on nutrients for bone healing and nutrient repletion. Recc focus on protein, complex carbs, F+V. Discussed options for low elizabeth protein sources such as pb and eggs. 2. Provided application for EBT food benefits through state. Notified pt how to double EBT benefits at local [employer] for purchase of local foods. 3. Recc initiation of MVI, consider adding to med list secondary to low income status. 4. Educated pt and partner on importance of structured food routine during early sobriety as a way to pass the time and build structure to reduce risk of relapse. EER: 1900kcals (30kcal/kg), 80-85g PRO (1.2-1.4g/kg) Monitoring/Evaluations: POs Electronically Signed by: Nayla Saul 11/13/21 13:39 Clinical Dietitian [address] [address]
--- NOTE | 2021-11-13 16:20 | PC.NURSE ---
PT COOPERATIVE AND ALERT , C/O PAIN TO RIGHT HIP/THIGH AREA 10/17 MEDICATED PERIODICALLY WITH PO OXYCODONE WELL TYLENOL FOR ADEQUATE PAIN CONTROL - HE FAVORS HIS RIGHT SIDE AND REQUIRES MUCH ASSIST WITH USE OF WALKER AND GAIT BELT BUT IMPAIRED RIGHT UPPER EXTREMITY WELL DUE TO FX AND SPLINTING- TAKING INCREASED AMOUNT OF PO AND DRINKING PLENTY OF H20 - DRESSING CHANGED TO RIGHT HIP/THIGH AREA
[2021-11-13] MEDS: chlordiazePOXIDE 25 MG CAPSULE 50 MG PO (21:59)
[2021-11-14] VITALS (7 sets, daily range): BP systolic 92–132; BP diastolic 61–85; PULSE 85–108; RESP 15–21; TEMP 36.8–37.7; O2SAT 97–100
[2021-11-14] MEDS: ACETAMINOPHEN 325 MG TABLET 650 MG PO ×3 (04:51→23:43)
[2021-11-14 05:14] LABS: Add Manual Diff / Slide Review NO; Basophils Absolute Auto 100 /uL (0-100); Basophils Percent Auto 1.2 % (0-2); Eosinophils Absolute Auto 0 /uL (0-450); Eosinophils Percent Auto 0.7 % (2-4); Hematocrit 25.6 % (41-53); Lymphocytes Absolute Auto 1300 /uL (1100-4500); Lymphocytes Percent Auto 27.5 % (25-40); Mean Corpuscular Hemoglobin 35.7 PG (26-34); Monocytes Absolute Auto 800 /uL (0-900); Monocytes Percent Auto 17.6 % (3-14); Neutrophils Absolute Auto 2600 /uL (1500-7000); Platelet Count 147 X10^3/uL (150-400); Red Blood Cell Count 2.51 X10^6/uL (4.5-5.9); Red Cell Distribution Width 13.2 % (11.6-14.8); White Blood Cell Count 4.8 X10^3/uL (4.5-11.0)
[2021-11-14 05:24] LABS: BUN Creatinine Ratio 8.5 (6-22); Blood Urea Nitrogen 4 mg/dL (9-20); Carbon Dioxide 27 mmol/L (22-32); Chloride 99 mmol/L (98-107); Estimated Glomerular Filt Rate > 60 mL/min (>60); Glucose 106 mg/dL (70-100); HEMOLYSIS < 15 (0-50); Potassium 3.9 mmol/L (3.4-5.1); Sodium 129 mmol/L (137-145)
--- NOTE | 2021-11-14 07:19 | PC.NURSE ---
End of shift note: Care of patient from [id number]. Patient AAOX3, calm, cooperative, using call light for assist. Good pain control with tylenol and oxycodone 5mg X1 during the night. Using urinal at bedside.
--- NOTE | 2021-11-14 07:48 | P.PN_ITS ---
Subjective Subjective Date Patient Seen: 11/14/21 Time Patient Seen: 07:48 Interval history: Patient is complaining of moderate to severe right hip pain this morning.? He denies any new numbness or tingling.? He is being managed by the hospitalist for his alcohol withdrawal seizures.? He sustained his hip fracture in the hospital, while getting up unassisted. He also has suffered a distal right clavicle fracture, approximately a month ago. The patient has difficulty remembering his exact dates. Exam Vital Signs (past 8 hours): - 11/14/21 00:00 11/14/21 04:00 Temperature 99.6 F 99.2 F Pulse Rate 95 H 89 Respiratory Rate 15 21 Blood Pressure 114/67 128/85 Pulse Oximetry 99 100 Oxygen Delivery Method Room Air Oxygen Flow Rate 0 Narrative Exam Narrative: 51-year-old male, resting comfortably in bed, no acute distress. Right clavicle is tender to palpation over the distal aspect. His sling is not on. Securities Underwriter str ength is 5/5. Right hip incision is clean, dry, intact. Bilateral lower extremity: Motor functions are grossly intact, sensation is grossly intact to light touch, right calf is tender to palpation but soft. Objective Labs Result Diagrams: 11/14/21 04:55 11/14/21 04:55 Labs: Laboratory Results - last 24 hr 11/14/21 11/14/21 04:55 04:55 WBC 4.8 RBC 2.51 L Hgb 9.0 L Hct 25.6 L MCV 102.0 H MCH 35.7 H MCHC 35.0 RDW 13.2 Plt Count 147 L Neut % (Auto) 53.0 Lymph % (Auto) 27.5 Christian % (Auto) 17.6 H Eos % (Auto) 0.7 L Baso % (Auto) 1.2 Neut # (Auto) 2600 Lymph # (Auto) 1300 Christian # (Auto) 800 Eos # (Auto) 0 Baso # (Auto) 100 Sodium 129 L Potassium 3.9 Chloride 99 Carbon Dioxide 27 BUN 4 L Creatinine 0.47 L Estimated GFR > 60 BUN/Creatinine Ratio 8.5 Glucose 106 H Calcium 8.0 L PFSH Medical History Alcohol abuse Alcohol withdrawal seizure Tobacco dependence Family History Mother Alcohol dependence Brother Coronary artery disease Father Coronary artery disease Social History household members: significant other Smoking Status: Current every day smoker alcohol intake: current Assessment & Plan Post-op Postoperative Procedures: Procedures Operation Date: 11/12/21 11:15 Actual Procedure Side Surgeon p Intramedullary Nailing Femur Tj Morrison MD Postoperative day: 2 Postoperative status narrative: -stable status post right hip intramedullary nailing of his femur -prior right distal clavicle fracture, present upon admission -alcohol withdrawal and seizures, being managed by the hospitalist Postoperative plan narrative: -mobilize with PT. Weightbearing as tolerated with front wheel walker -DVT prophylaxis aspirin 81 mg b.i.d. x6 weeks -order right lower extremity ultrasound to rule out a DVT today -continue with multimodal pain management -appreciate the hospitalist managing his alcohol and benzodiazepine withdrawal/seizures and his existing medical problems -DC likely to SNF, pending hospitalist recommendation
--- NOTE | 2021-11-14 07:55 | DI.US.S_ITS ---
PROCEDURE: US PERIPH VENOUS LOW EXTREM RT INDICATIONS: RIGHT CALF PAIN. RECENT HIP SURGERY. TECHNIQUE: Real-time imaging, as well as color and pulse Doppler interrogation, were performed of the lower extremity deep veins from the inguinal ligament to the popliteal fossa. COMPARISON: None. FINDINGS: The common femoral, femoral and popliteal veins are normally compressible, and free of intraluminal thrombus. Color and pulse Doppler demonstrate normal phasic intraluminal flow. There is normal augmentation response to distal compression maneuver. IMPRESSION: Negative for deep venous thrombosis of the right lower extremity. Dictated by: Augustine Vickers M.D. on 11/14/2021 at 10:37 Approved by: Augustine Vickers M.D. on 11/14/2021 at 10:39
[2021-11-14] MEDS: NICOTINE 21 MG PATCH TOP (09:59)
[2021-11-14] MEDS: OXYCODONE IR 5 MG TABLET PO ×4 (10:00→23:42)
[2021-11-14] MEDS: THIAMINE 100 MG TABLET PO (10:00)
[2021-11-14] MEDS: MULTIVITAMIN 1 TABLET 1 TAB PO (10:00)
[2021-11-14] MEDS: ASPIRIN EC 81 MG TABLET PO ×2 (10:00→20:04)
[2021-11-14] MEDS: FOLIC ACID 1 MG TABLET PO (10:00)
[2021-11-14] MEDS: chlordiazePOXIDE 25 MG CAPSULE PO ×2 (10:32→20:04)
--- NOTE | 2021-11-14 11:27 | PT.IPTN ---
Current Diagnoses Alcohol abuse, uncomplicated (11/11/21) Alcohol dependence with withdrawal, unspecified (11/11/21) Nicotine dependence, unspecified, uncomplicated (11/11/21) Unspecified convulsions (11/11/21) Surgery Performed Operation Date: 11/12/21 11:15 Actual Procedures p Intramedullary Nailing Femur - Tj Morrison MD Physical Therapy Treatment Note M2 PT-IP Current Condition Start: 11/13/21 08:33 Freq: NEEDED Status: Active Protocol: Document 11/13/21 10:35 AW (Rec: 11/13/21 11:26 AW [id number]) Physical Therapy Current Condition Current Condition Evaluation Date 11/13/21 Treatment Diagnosis R femur fx s/p IMN; R clavicle fx; EtOT w/d, seizures; difficulty walking Onset Date 11/11/21 M3 PT-IP Subjective Start: 11/13/21 08:33 Freq: NEEDED Status: Active Protocol: Document 11/14/21 11:04 KS (Rec: 11/14/21 12:02 KS [id number]) Subjective Physical Therapy Visit Type Type Treatment Note Visit Start Time 11:04 Visit Stop Time 11:27 Total Visit Minutes 23 Notes co-treat w/ OT Number of INTERNET SALES CONSULTANT Visits 1 Physical Therapy Visit Comments Patient Comments Pt is willing to participate with PT Patient Goals Pt is open to rehab options and verbalizes better understanding of his limitations. Therapy Pain Assessment Pain When Pain Assessed During Mobility Pain Present Pain Present Pain Reported Location RT hip/femur Intensity 7 Pain Behaviors Facial Grimacing,Guarding, Restlessness Pain Management Techniques Distraction,Elevation, Modification of Treatment,Re- positioning,Timing of Activity with Medications M4 PT-IP Mobility and Gait Start: 11/13/21 08:33 Freq: NEEDED Status: Active Protocol: Document 11/14/21 11:04 KS (Rec: 11/14/21 12:02 KS [id number]) PT-Bed Mobility Assessment Supine to Sit Supine to Sit Minimal Assistance,1 Person Assistance Sit to Supine Sit to Supine Minimal Assistance,1 Person Assistance Scooting Scooting to Edge of Bed Contact Guard Assistance PT-Transfer Assessment Sit to and From Stand Sit to and from Stand Minimal Assistance,1 Person Assistance,Use of Upper Extremities Equipment Transfer Assistive Device Gait Belt,Front Wheeled Walker Orthotic/Prosthetic Devices or Brace: No Transfers Transfer Destination Bed Transfer Technique sit<>stand, lateral steps. Transfer Ability Level of Assist Maximum Assistance,1 Person Assistance Comments Mobility Comments Pt in bed upon arrival from therapy and agreeable to mobilize but reporting 7/10 pain. BP supine: 123/73. Min A and max cues for sup<>sit, CGA and cues for scooting EOB. Pts BP sittin/72. Pt then sit<>stand w/ FWW Min A and was able to maintain standing balance ~1 min w/ Min A and BP 96/62 w/ pt feeling slightly dizzy but agreebale to try and take small steps sideways towards HOB. Pt unable to elevated LE from floor to take steps, but able to push through BUE and minimally scoot LE w/ Mod A and max cues. Pt then sat down , Min A for sit<>sup for RLE assistance into bed and Max A for repositioning. Pt left in bed w/ OT in room. Gait Assessment Gait Gait Assistance Required: Moderate Assistance,1 Person Assist Distance (Feet) 2 Able to Maintain Weight Bearing Status Yes During Gait Assistive Devices Assistive Device Gait Belt,Front Wheeled Walker Comments Gait Comments Steps taken during transfer only. RLE weightbearing was limited. Stair Climbing Assessment Comments Stair Climbing Comments Not assessed as pt was unsafe and unable to ambulate. PT-Balance Assessment Sitting Balance and Reactions Static Sitting Balance Ability Good Dynamic Sitting Balance Ability Fair Standing Balance and Reactions Static Standing Balance Ability Fair Dynamic Standing Balance Ability Poor Device Used FWW M5 PT-IP Objective Assessments Start: 11/13/21 08:33 Freq: NEEDED Status: Active Protocol: Document 11/13/21 10:35 AW (Rec: 11/13/21 11:26 AW [id number]) Orientation Orientation/Cognition Level of Alertness Confusional State Orientation Name,Day of Week,Place, Situation Language Function Ability Garbled Speech,Word Finding Difficulties Safety Awareness Decreased Safety Awareness Memory Description Short Term Impaired Comments Pt repeated himself frequently . He needed cues to turn his phone toward him when trying to send a text. Gross Range of Motion Upper Extremity ROM Assessment Right Impaired Lower Extremity ROM Assessment Right Impaired Strength Lower Extremity Strength Assessment Bilaterally Impaired Hip L 4-/5; R 3-/5 Knee L 4-/5; R 3/5 Coordination Assessment Gross Coordination Gross Coordination Impaired Assessment Finger to Nose Test Moderate Impairment Pronation/Supination Test Moderate Impairment Foot Tapping Test Moderate Impairment Sensation Assessment Sensation Gross Sensation WNL Muscle Tone Muscle Tone WNL Yes M6 PT-IP Treatment Start: 11/13/21 08:33 Freq: NEEDED Status: Active Protocol: Document 11/14/21 11:04 KS (Rec: 11/14/21 12:02 KS [id number]) Physical Therapy Treatment Education Education Provided Weight Bearing Status,Post-Op Packet,Safety M7 PT-IP Assessment and Plan Start: 11/13/21 08:33 Freq: NEEDED Status: Active Protocol: Document 11/14/21 11:04 KS (Rec: 11/14/21 12:02 KS [id number]) PT Summary Assessment and Plan Summary Impairments Pain,ROM,Strength,Balance, Coordination,Cognition,Bed Mobility,Transfers,Gait Assessment Summary Pt doing better w/ bed mobility, only needing Min A and cues today. Min A also w/ sit<>stand, but pt limited by pain, weakness, and slight dizziness w/ low blood pressure in standing (86/62). He was only able to scoot LE sideways towards HOB and unable to elevate LE and could only tolerate ~2 ft. He is unsafe and unable to ambulate at this time due to weakness, low BP, and poor balance. He is a high fall risk and will benefit from SNF or acute rehab if activity tolerance improves. Goals Bed Mobility Goal Standby Assistance Transfer Goal Minimal Assistance,Front Wheeled Walker Gait Goal Minimal Assistance,Front Wheel Walker Gait Distance 75 Other Goals - up/down 2 steps with B rails min A Days to Meet Goals 10 Frequency of Treatment Frequency Of Treatment Twice a Day Treatment Plan Physical Therapy Treatment Plan Bed Mobility Training,Transfer Training,Gait Training, Therapeutic Exercise,Balance Retraining,Post Op Education, Discharge Planning,Hot or Cold Pack,Neuromuscular Re-ed, Coordination Retraining Precautions Other Precautions seizures, falls Weight Bearing Status Weight Bearing Status Weight Bear as Tolerated Allowed Weight Bearing Amount (enter % WBAT RLE and RUE; shoulder or #) (%) sling recommended when not mobilizing Recommendations To Nursing Amount of Assist Needed 2 Person Assist Discharge Recommendations PT Discharge Recommendations Home with 31/12 Assist Available,Home Health,SNF Rehab,Acute Rehab,Home vs SNF, SNF vs Acute Rehab Equipment Needed for Home Before RTS, FWW (if RV will Discharge accommodate) Transportation Needs at Discharge Wheelchair/Cabulance
--- NOTE | 2021-11-14 11:34 | OT.IP.EVAL ---
Current Diagnoses Alcohol abuse, uncomplicated (11/11/21) Alcohol dependence with withdrawal, unspecified (11/11/21) Nicotine dependence, unspecified, uncomplicated (11/11/21) Unspecified convulsions (11/11/21) Surgery Performed Operation Date: 11/12/21 11:15 Actual Procedures p Intramedullary Nailing Femur - Tj Morrison MD Past Medical History (Last Reviewed 11/14/21 @ 07:50 by Leona Vlilaseñor PA-C) Alcohol abuse Alcohol withdrawal seizure Tobacco dependence Occupational Therapy Inpatient Evaluation/Re-Eval M1 PT/OT-IP Prior Functional Status Start: 11/13/21 08:33 Freq: NEEDED Status: Active Protocol: Document 11/14/21 10:58 [facility] (Rec: 11/14/21 12:05 [facility] [id number]) Medical Review Prior Functional Status Medical History Reviewed Yes Communication Pt is able to make his needs known but with a great deal of confusion. Mobility and Gait Pt reports independent mobility at baseline. He denies falls but is a difficult historian. Activities of Daily Living and IADL's Pt states he is independent with ADL's Social History Household Members significant other Living Arrangements RV Number of Floors (Floors) One Floor Number of Stairs To Enter/Railing? 2 TANYA with narrow bilateral rails. Home Environment Standard Height Toilet,Walk in Shower,Narrow Doors Employment Status Unemployed Additional Social History Comment Pt lives in an RV with his partner, Christo. Per pt, Christo is available and able to provide assist. Pt notes a walker may not fit in the RV. M2 OT-IP Current Condition Start: 11/14/21 11:40 Freq: Status: Active Protocol: Document 11/14/21 10:58 [facility] (Rec: 11/14/21 12:05 [facility] [id number]) Occupational Therapy Current Condition Current Condition Evaluation Date 11/14/21 Treatment Diagnosis s/p right Intramedullary nailing of his femur, seizures Diagnosis Onset Date 11/11/21 Weight Bearing Status Weight Bearing Status Weight Bear as Tolerated Allowed Weight Bearing Amount (enter % Pt also had a right clavicle or #) (%) fx approx one month ago and is WBAT for RUE. RLE WBAT M3 OT- IP Subjective and Pain Start: 11/14/21 11:40 Freq: Status: Active Protocol: Document 11/14/21 10:58 [facility] (Rec: 11/14/21 12:05 [facility] [id number]) OT- Subjective Occupational Therapy Visit Type Type Initial Evaluation Visit Start Time 10:58 Visit Stop Time 11:34 Total Visit Minutes 36 Occupational Therapy Visit Comments Patient Comments Pt willing to get up after encouragement. Patient/Caregiver Goals Pt wanting to get better. OT Pain Assessment Pain When Pain Assessed At Rest Pain Present Pain Present Pain Reported Location RT hip/femur Intensity 7 Scale Used Numeric (0 - 10) M4 OT- IP ADL's Start: 11/14/21 11:40 Freq: Status: Active Protocol: Document 11/14/21 10:58 [facility] (Rec: 11/14/21 12:05 [facility] [id number]) OT [id number] Comments OT Self-Feeding Comments NOt at meal time. OT ADL-Grooming Comments OT Grooming Comments NOt performed. OT ADL-Oral Care Comments Oral Care Comments NOt performed. OT ADL-Dressing General Eval Lower Body Dressing Ability Maximum Assistance Comments OT Dressing Comments Able to initiate education of use of LB dressing equipment for needs. OT ADL-Toileting Comments OT Toileting Comments Pt use of urinal in bed at this time or BSC. OT ADL-Bathing Comments OT Bathing Comments Sponge bath more appropriate at this time. M5 OT- IP IADL's Start: 11/14/21 11:40 Freq: Status: Active Protocol: Document 11/14/21 10:58 [facility] (Rec: 11/14/21 12:05 [facility] [id number]) OT-Instrumental Activities of Daily Living Home Safety Awareness Awareness of Need for Assistance at Home Good Awareness Home Safety Comments Pt partner available to assist pt as needed. M6 OT- IP Functional Cognition Start: 11/14/21 11:40 Freq: Status: Active Protocol: Document 11/14/21 10:58 [facility] (Rec: 11/14/21 12:05 [facility] [id number]) Cognitive Factors Limiting Selfcare Function Cognitive Ability Level of Alertness Alert Patient Orientation Name,Place,Situation Attention Span Ability Capable of Focused Attention, Capable of Sustained Attention Ability to Follow Commands Able to Follow One Step Commands Cognitive Comments Cognitive Assessment Comments Pt needing encouragement , increased time to follow safety cues for bed mobility and FWW use. OT- Vision and Hearing OT- Hearing Assessment OT- Hearing Assessment WFL OT- Vision Assessment Visual Acuity Glasses All The Time M7 OT- IP Mobility and Balance Start: 11/14/21 11:40 Freq: Status: Active Protocol: Document 11/14/21 10:58 [facility] (Rec: 11/14/21 12:05 [facility] [id number]) OT- Bed Mobility Assessment Supine to Sit Supine to Sit Assist Minimal Assistance Sit to Supine Sit to Supine Assist Minimal Assistance OT-Transfer Assessment Sit to and From Stand Sit to and from Stand Minimal Assistance Comments Mobility Comments RAYSHAWN to assist to help move slide his RLE into and out of the bed to the side. RAYSHAWN come to stand with the FWW. MODA x1 for management of FWW, balance, as pt able to take a step/shuffle his foot side to side to get closer to the head of the bed. OT- Balance Assessment Sitting Balance and Reactions Static Sitting Balance Ability Good Standing Balance and Reactions Static Standing Balance Ability Fair Comments Other Balance Tests/Deviations/Treatment BP supine 123/73, sitting 108/ : 72, standing 86/62, and sitting 92/61. Pt not symptomatic until after standing for a bit and agreed that he felt whoozy. Nursing notified of low BP. M8 OT- IP Objective Assessments Start: 11/14/21 11:40 Freq: Status: Active Protocol: Document 11/14/21 10:58 [facility] (Rec: 11/14/21 12:05 [facility] [id number]) OT Gross Range of Motion Upper Extremity Range of Motion Assessment Right Impaired OT Strength Upper Extremity Strength Assessment Right Impaired OT-Muscle Tone Assessment Muscle Tone WNL Yes M9 OT- IP Assessment and Plan Start: 11/14/21 11:40 Freq: Status: Active Protocol: Document 11/14/21 10:58 [facility] (Rec: 11/14/21 12:05 [facility] [id number]) OT Summary Assessment and Plan Potential Rehabilitation Potential Good Analytic Complexity at Evaluation Moderate Summary OT Impairments Pain,Range of Motion,Strength, Balance,Functional Cognition, Functional Mobility,Grooming, Dressing,Toileting,Bathing, Toilet Transfers,Shower Transfers,Activity Tolerance Progress Towards Goals Slow Progress due to Pain,Slow Progress due to Medical Issues,Slow Progress due to Activity Tolerance Assessment Summary Pt MOD complexity and main barrier are steps, pain, and now needing extension 1-2 person assist for ADL and mobility needs. Pt not able to move his RLE much and at this time has to shuffle his foot to move. Pt would greatly benefit from skilled rehab versus acute rehab prior to going home. Pt is pleasant and motivated to get better. Goals Grooming Goal Independent Dressing Goal Independent Toileting Goal Independent Bathing Goal Independent Toilet Transfer Goal Independent Shower Transfer Goal Independent Days to Meet Goals 36 Frequency of Treatment Frequency Of Treatment Once a Day Treatment Plan OT Treatment Plan ADL Training,Functional Cognition Training,Functional Mobility,Patient/Family Education,Discharge Planning Discharge Recommendations OT Discharge Recommendations SNF Rehab,Acute Rehab,SNF vs Acute Rehab Transportation Needs at Discharge Wheelchair/Cabulance
--- NOTE | 2021-11-14 12:32 | CM.DPC ---
DCP Cont: Per MD and Ortho, pt making slow progress and per Pharmacy pt likely will have his last librium dose this morning for ETOH withdrawal. Return call from [facility] with some concerns with pt's sodium, librium for ongoing withdrawals, and willing to continue to review once pt more medically stable and some concerns with pt improving quick enough for return to RV with [facility] in the amount of time insurance would auth. Per PT/OT, pt made some progress from yesterday and mostly one person assist now. Concerned though that pt may not be able to tolerate Acute Inpt Rehab due to some ongoing bp issues but still feel he could benefit from Acute rehab and aware of the barriers with insurance for SNF. SW faxed updated PT/OT notes, labs, MD prog notes to [facility] for ongoing review to determine if Acute rehab will be an option vs return to RV with [facility] and [facility] reviewing. SW met bedside with pt and [facility] Christo yesterday late afternoon and discussed barriers with insurance for SNF and pt confirms he received a call from [facility] stating they were reviewing and asked pt a few questions. Provided Acute Rehab brochure to review and discussed that pt would have to meet criteria for Acute Rehab vs back up plan of home with HH and [facility] confirms he is not currently working and could be available for assist 31/12. Both appreciative of SW assist and d/c planning attempts. Plan: SW to follow closely for [facility] Acute re[facility] review vs [facility] review to determine safe/insurance approved discharge plan. AVINASH Pascal
--- NOTE | 2021-11-14 13:42 | PT.IPTN ---
Current Diagnoses Alcohol abuse, uncomplicated (11/11/21) Alcohol dependence with withdrawal, unspecified (11/11/21) Nicotine dependence, unspecified, uncomplicated (11/11/21) Unspecified convulsions (11/11/21) Surgery Performed Operation Date: 11/12/21 11:15 Actual Procedures p Intramedullary Nailing Femur - Tj Morrison MD Physical Therapy Treatment Note M2 PT-IP Current Condition Start: 11/13/21 08:33 Freq: NEEDED Status: Active Protocol: Document 11/13/21 10:35 AW (Rec: 11/13/21 11:26 AW [id number]) Physical Therapy Current Condition Current Condition Evaluation Date 11/13/21 Treatment Diagnosis R femur fx s/p IMN; R clavicle fx; EtOT w/d, seizures; difficulty walking Onset Date 11/11/21 M3 PT-IP Subjective Start: 11/13/21 08:33 Freq: NEEDED Status: Active Protocol: Document 11/14/21 13:29 [place] (Rec: 11/14/21 14:54 [place] [id number]) Subjective Physical Therapy Visit Type Type Treatment Note Visit Start Time 13:29 Visit Stop Time 13:42 Total Visit Minutes 13 Number of KNIFE GLAZER Visits 2 Physical Therapy Visit Comments Patient Comments Pt is willing to participate with PT Patient Goals Pt is open to rehab options and verbalizes better understanding of his limitations. Therapy Pain Assessment Pain When Pain Assessed During Mobility Pain Present Pain Present Pain Reported M4 PT-IP Mobility and Gait Start: 11/13/21 08:33 Freq: NEEDED Status: Active Protocol: Document 11/14/21 13:29 [place] (Rec: 11/14/21 14:54 [place] [id number]) PT-Bed Mobility Assessment Supine to Sit Supine to Sit Minimal Assistance,1 Person Assistance Scooting Scooting to Edge of Bed Contact Guard Assistance PT-Transfer Assessment Sit to and From Stand Sit to and from Stand Minimal Assistance,1 Person Assistance,Use of Upper Extremities Equipment Transfer Assistive Device Gait Belt,Front Wheeled Walker Orthotic/Prosthetic Devices or Brace: No Transfers Transfer Destination Bedside Commode Transfer Technique Stand Step Pivot Transfer Ability Level of Assist Moderate Assistance,1 Person Assistance,Use of Upper Extremities Comments Mobility Comments Pt in bed upon arrival and wanting to use BSC. Min A for sup<>sit from flat bed and CGA for scooting EOB. Pt required increased time due to pain and weakness. Pt then sit<> stand w/ FWW Min A and performed stand step pivot to BSC Mod A max cues. Pt reported he did not want to do more this PM due to fatigue. Left on BS for bowel movement w/ all needs in reach and RN aware. Gait Assessment Gait Gait Assistance Required: Moderate Assistance,1 Person Assist Distance (Feet) 2 Able to Maintain Weight Bearing Status Yes During Gait Assistive Devices Assistive Device Gait Belt,Front Wheeled Walker Comments Gait Comments Steps taken during transfer only. RLE weightbearing was limited. Stair Climbing Assessment Comments Stair Climbing Comments Not assessed as pt was unsafe and unable to ambulate. PT-Balance Assessment Sitting Balance and Reactions Static Sitting Balance Ability Good Dynamic Sitting Balance Ability Fair Standing Balance and Reactions Static Standing Balance Ability Fair Dynamic Standing Balance Ability Poor Device Used FWW M5 PT-IP Objective Assessments Start: 11/13/21 08:33 Freq: NEEDED Status: Active Protocol: Document 11/13/21 10:35 AW (Rec: 11/13/21 11:26 AW [id number]) Orientation Orientation/Cognition Level of Alertness Confusional State Orientation Name,Day of Week,Place, Situation Language Function Ability Garbled Speech,Word Finding Difficulties Safety Awareness Decreased Safety Awareness Memory Description Short Term Impaired Comments Pt repeated himself frequently . He needed cues to turn his phone toward him when trying to send a text. Gross Range of Motion Upper Extremity ROM Assessment Right Impaired Lower Extremity ROM Assessment Right Impaired Strength Lower Extremity Strength Assessment Bilaterally Impaired Hip L 4-/5; R 3-/5 Knee L 4-/5; R 3/5 Coordination Assessment Gross Coordination Gross Coordination Impaired Assessment Finger to Nose Test Moderate Impairment Pronation/Supination Test Moderate Impairment Foot Tapping Test Moderate Impairment Sensation Assessment Sensation Gross Sensation WNL Muscle Tone Muscle Tone WNL Yes M6 PT-IP Treatment Start: 11/13/21 08:33 Freq: NEEDED Status: Active Protocol: Document 11/14/21 13:29 [place] (Rec: 11/14/21 14:54 [place] [id number]) Physical Therapy Treatment Education Education Provided Weight Bearing Status,Post-Op Packet,Safety M7 PT-IP Assessment and Plan Start: 11/13/21 08:33 Freq: NEEDED Status: Active Protocol: Document 11/14/21 13:29 [place] (Rec: 11/14/21 14:54 EBONY [id number]) PT Summary Assessment and Plan Summary Impairments Pain,ROM,Strength,Balance, Coordination,Cognition,Bed Mobility,Transfers,Gait Assessment Summary Pt continues to require Min A for bed mobility and sit<> stand w/ FWW, but Mod A and max verbal and tactile cues for transfer. Unable to put enough weight through BUE to elevate LE from ground to take steps due to R clavicle pain from fracture and therefore pivots feet to move and fatigues quickly. He is a high fall risk and will benefit from SNF or acute rehab if activity tolerance improves. Goals Bed Mobility Goal Standby Assistance Transfer Goal Minimal Assistance,Front Wheeled Walker Gait Goal Minimal Assistance,Front Wheel Walker Gait Distance 75 Other Goals - up/down 2 steps with B rails min A Days to Meet Goals 10 Frequency of Treatment Frequency Of Treatment Twice a Day Treatment Plan Physical Therapy Treatment Plan Bed Mobility Training,Transfer Training,Gait Training, Therapeutic Exercise,Balance Retraining,Post Op Education, Discharge Planning,Hot or Cold Pack,Neuromuscular Re-ed, Coordination Retraining Precautions Other Precautions seizures, falls Weight Bearing Status Weight Bearing Status Weight Bear as Tolerated Allowed Weight Bearing Amount (enter % WBAT RLE and RUE; shoulder or #) (%) sling recommended when not mobilizing Recommendations To Nursing Amount of Assist Needed 1 Person Assist Discharge Recommendations PT Discharge Recommendations Home with 31/12 Assist Available,Home Health,SNF Rehab,Acute Rehab,Home vs SNF, SNF vs Acute Rehab Equipment Needed for Home Before RTS, FWW (if RV will Discharge accommodate) Transportation Needs at Discharge Wheelchair/Cabulance
[2021-11-14] MEDS: polyethylene glycoL 3350 17 GM POWD.PACK PO (19:52)
--- NOTE | 2021-11-14 20:57 | P.PN_ITS ---
Subjective Subjective Date Patient Seen: 11/14/21 Time Patient Seen: 08:00 Interval history: His hip pain is controlled. Otherwise he feels that he is not withdrawing. He has not done very well with mobility per staff. Exam Vital Signs (past 8 hours): - 11/14/21 16:30 11/14/21 20:00 Temperature 98.2 F 99.9 F H Pulse Rate 87 108 H Respiratory Rate 17 18 Blood Pressure 114/72 132/70 Pulse Oximetry 97 100 Oxygen Delivery Method Room Air Oxygen Flow Rate 0 Narrative Exam Narrative: General:? no acute distress Lungs: clear bilaterally EXT: hip bandage intact, tender over incision NEURO: not tremulous or anxious appearing, no focal deficits noted Objective Labs Result Diagrams: 11/14/21 04:55 11/14/21 04:55 Labs: Laboratory Results - last 24 hr 11/14/21 11/14/21 04:55 04:55 WBC 4.8 RBC 2.51 L Hgb 9.0 L Hct 25.6 L MCV 102.0 H MCH 35.7 H MCHC 35.0 RDW 13.2 Plt Count 147 L Neut % (Auto) 53.0 Lymph % (Auto) 27.5 [place] % (Auto) 17.6 H Eos % (Auto) 0.7 L Baso % (Auto) 1.2 Neut # (Auto) 2600 Lymph # (Auto) 1300 [place] # (Auto) 800 Eos # (Auto) 0 Baso # (Auto) 100 Sodium 129 L Potassium 3.9 Chloride 99 Carbon Dioxide 27 BUN 4 L Creatinine 0.47 L Estimated GFR > 60 BUN/Creatinine Ratio 8.5 Glucose 106 H Calcium 8.0 L [facility] Medical History Alcohol abuse Alcohol withdrawal seizure Tobacco dependence Family History Mother Alcohol dependence Brother Coronary artery disease Father Coronary artery disease Social History household members: significant other Smoking Status: Current every day smoker alcohol intake: current Assessment & Plan Assessment & Plan narrative: 1. Recurrent seizures prior to admission -initially secondary to ETOH withdrawal and was admitted to [facility] for 1 week, discharge 11/09, had a seizure just a couple hours after leaving hospital, seen at [facility] and treated with phenobarbital, declined admission and then ended up here with another seizure -last ETOH was over a week ago and probably these more recent seizures may be from benzodiazepine withdrawal rather than ETOH withdrawal -continue Librium taper, tapered to 25 mg bid on 11/14 -received info on outpatient alcohol treatment resources 2. Acute right hip subtrochanteric/intertrochanteric fracture with displacement -occurred from GLF in hospital on 11/12 -status post ORIF on 11/12 -PT/OT 3. Right distal clavicle fracture with mild displacement, present on admission -this can be nonsurgically managed, provided sling for comfort and immobilization -instructed in ROM exercises, dangling arm and gently moving arm in circles -recommended outpatient Ortho follow-up 4. Anemia and thrombocytopenia secondary to alcohol dependency, chronic -continue daily thiamin and folic acid 5. Hypokalemia, corrected -received IV and oral potassium replacement -also received IV magnesium for low normal Mg 6. Hyponatremia, present on admission, likely chronic -continue NS hydration 7. Moderate to severe chronic protein calorie malnutrition secondary to alcoholism -BMI 19 -address underlying cause 8.? Nicotine dependency -encouraged to quit smoking, provided nicotine patch Time Spent With Patient Critical Care time: I spent a total of [] minutes of critical care time on this patient's care today; this time is exclusive of procedural time.
[2021-11-15] VITALS: BP 123/84; PULSE 92; RESP 16; TEMP 36.7; O2SAT 99
[2021-11-15 04:00] VITALS: BP 118/81; PULSE 83; RESP 15; TEMP 36.2; O2SAT 100
[2021-11-15 04:28] LABS: Hematocrit 22.9 % (41-53); Mean Corpuscular Hemoglobin 35.6 PG (26-34); Mean Corpuscular Volume 101.7 fL (80-100); Platelet Count 176 X10^3/uL (150-400); Red Blood Cell Count 2.25 X10^6/uL (4.5-5.9); Red Cell Distribution Width 13.5 % (11.6-14.8); White Blood Cell Count 5.5 X10^3/uL (4.5-11.0)
[2021-11-15 04:44] LABS: BUN Creatinine Ratio 17.1 (6-22); Blood Urea Nitrogen 6 mg/dL (9-20); Calcium 7.9 mg/dL (8.4-10.2); Carbon Dioxide 26 mmol/L (22-32); Chloride 100 mmol/L (98-107); Estimated Glomerular Filt Rate > 60 mL/min (>60); Glucose 116 mg/dL (70-100); HEMOLYSIS < 15 (0-50); Potassium 3.7 mmol/L (3.4-5.1); Sodium 131 mmol/L (137-145)
[2021-11-15] MEDS: ACETAMINOPHEN 325 MG TABLET 650 MG PO ×2 (06:17→19:43)
[2021-11-15] MEDS: OXYCODONE IR 5 MG TABLET PO ×2 (06:19→19:44)
--- NOTE | 2021-11-15 07:16 | PC.NURSE ---
End of shift. Care of patient from [id number]. A&O X3, uses call light, good pain control with Tylenol and oxycodone 5mg. Up to BSC, c/o constipation, gave mirilax. Using urinal at bedside.
[2021-11-15 08:00] VITALS: BP 110/74; PULSE 78; RESP 16; TEMP 37.1; O2SAT 99
[2021-11-15] MEDS: chlordiazePOXIDE 25 MG CAPSULE PO (08:46)
[2021-11-15] MEDS: MULTIVITAMIN 1 TABLET 1 TAB PO (08:46)
[2021-11-15] MEDS: ASPIRIN EC 81 MG TABLET PO ×2 (08:46→22:09)
[2021-11-15] MEDS: FOLIC ACID 1 MG TABLET PO (08:48)
[2021-11-15] MEDS: polyethylene glycoL 3350 17 GM POWD.PACK PO (08:48)
[2021-11-15] MEDS: THIAMINE 100 MG TABLET PO (08:48)
[2021-11-15] MEDS: NICOTINE 21 MG PATCH TOP (08:48)
--- NOTE | 2021-11-15 09:38 | PT.IPTN ---
Current Diagnoses Alcohol abuse, uncomplicated (11/11/21) Alcohol dependence with withdrawal, unspecified (11/11/21) Nicotine dependence, unspecified, uncomplicated (11/11/21) Unspecified convulsions (11/11/21) Surgery Performed Operation Date: 11/12/21 11:15 Actual Procedures p Intramedullary Nailing Femur - Tj Morrison MD Physical Therapy Treatment Note M2 PT-IP Current Condition Start: 11/13/21 08:33 Freq: NEEDED Status: Active Protocol: Document 11/13/21 10:35 AW (Rec: 11/13/21 11:26 AW [id number]) Physical Therapy Current Condition Current Condition Evaluation Date 11/13/21 Treatment Diagnosis R femur fx s/p IMN; R clavicle fx; EtOT w/d, seizures; difficulty walking Onset Date 11/11/21 M3 PT-IP Subjective Start: 11/13/21 08:33 Freq: NEEDED Status: Active Protocol: Document 11/15/21 09:18 KS (Rec: 11/15/21 11:55 KS [id number]) Subjective Physical Therapy Visit Type Type Treatment Note Visit Start Time 09:18 Visit Stop Time 09:38 Total Visit Minutes 20 Number of TEACHER EDUCATION DIRECTOR Visits 3 Physical Therapy Visit Comments Patient Comments Pt is willing to participate with PT Patient Goals Pt is open to rehab options. Therapy Pain Assessment Pain When Pain Assessed During Mobility Pain Present Pain Present Pain Reported M4 PT-IP Mobility and Gait Start: 11/13/21 08:33 Freq: NEEDED Status: Active Protocol: Document 11/15/21 09:18 KS (Rec: 11/15/21 11:55 KS [id number]) PT-Bed Mobility Assessment Supine to Sit Supine to Sit Contact Guard Assistance,1 Person Assistance Scooting Scooting to Edge of Bed Standby Assistance PT-Transfer Assessment Sit to and From Stand Sit to and from Stand Contact Guard Assistance,1 Person Assistance,Use of Upper Extremities Equipment Transfer Assistive Device Gait Belt,Front Wheeled Walker Orthotic/Prosthetic Devices or Brace: No Transfers Transfer Destination Chair Transfer Technique Stand Step Pivot Transfer Ability Level of Assist Moderate Assistance,1 Person Assistance,Use of Upper Extremities Comments Mobility Comments Pt in bed upon arrival w/ OT in room. CGA w/ use of leg salary manager for sup<>sit, SBA for scooting EOB. Pts BP still drops from 100/60s to 80s/50s w/ positional changes but denied dizziness this AM. Continues to have quick approach to fatigue. CGA and cues for hand placement for sit<>stand w/ FWW. Pt able to tolerate some weight shifting today and during stand step pivot could very minimally elevate LE off of floor to advance towards chair. Pt however unable to tolerate full transfer and collapsed into chair slightly prematurely w/ Mod A for slow descent. He then performed 1x10 bilateral ankle pumps, quad sets, glute sets, and 1x5 LLE SLR w/ leg salary manager for assistance. Pt left in chair w / all needs in reach. Gait Assessment Gait Gait Assistance Required: Moderate Assistance,1 Person Assist Distance (Feet) 2 Able to Maintain Weight Bearing Status Yes During Gait Assistive Devices Assistive Device Gait Belt,Front Wheeled Walker Comments Gait Comments Please refer to mobility section. Stair Climbing Assessment Comments Stair Climbing Comments Not assessed as pt was unsafe and unable to ambulate. PT-Balance Assessment Sitting Balance and Reactions Static Sitting Balance Ability Good Dynamic Sitting Balance Ability Fair Standing Balance and Reactions Static Standing Balance Ability Fair Dynamic Standing Balance Ability Poor Device Used FWW M5 PT-IP Objective Assessments Start: 11/13/21 08:33 Freq: NEEDED Status: Active Protocol: Document 11/13/21 10:35 AW (Rec: 11/13/21 11:26 AW [id number]) Orientation Orientation/Cognition Level of Alertness Confusional State Orientation Name,Day of Week,Place, Situation Language Function Ability Garbled Speech,Word Finding Difficulties Safety Awareness Decreased Safety Awareness Memory Description Short Term Impaired Comments Pt repeated himself frequently . He needed cues to turn his phone toward him when trying to send a text. Gross Range of Motion Upper Extremity ROM Assessment Right Impaired Lower Extremity ROM Assessment Right Impaired Strength Lower Extremity Strength Assessment Bilaterally Impaired Hip L 4-/5; R 3-/5 Knee L 4-/5; R 3/5 Coordination Assessment Gross Coordination Gross Coordination Impaired Assessment Finger to Nose Test Moderate Impairment Pronation/Supination Test Moderate Impairment Foot Tapping Test Moderate Impairment Sensation Assessment Sensation Gross Sensation WNL Muscle Tone Muscle Tone WNL Yes M6 PT-IP Treatment Start: 11/13/21 08:33 Freq: NEEDED Status: Active Protocol: Document 11/15/21 09:18 KS (Rec: 11/15/21 11:55 KS [id number]) Physical Therapy Treatment Exercises Exercises Ankle Pumps,Gluteal Sets,Quad Sets,Straight Leg Raises Education Education Provided Weight Bearing Status,Post-Op Packet,Safety M7 PT-IP Assessment and Plan Start: 11/13/21 08:33 Freq: NEEDED Status: Active Protocol: Document 11/15/21 09:18 KS (Rec: 11/15/21 11:55 KS [id number]) PT Summary Assessment and Plan Summary Impairments Pain,ROM,Strength,Balance, Coordination,Cognition,Bed Mobility,Transfers,Gait Assessment Summary Pt improving w/ bed mobility and sit<>Stands w/ FWW but ultimately still needing Mod A w/ transfers due to weakness and pain. Pt has tendency to want to pivot to chair rather than taking steps and has poor eccentric control when sitting and needs increased assist and cues for upright posture, FWW management and leg sequencing cues. He would benefit from acute rehab or SNF to improve strength and functional mobility. Goals Bed Mobility Goal Standby Assistance Transfer Goal Minimal Assistance,Front Wheeled Walker Gait Goal Minimal Assistance,Front Wheel Walker Gait Distance 75 Other Goals - up/down 2 steps with B rails min A Days to Meet Goals 10 Frequency of Treatment Frequency Of Treatment Twice a Day Treatment Plan Physical Therapy Treatment Plan Bed Mobility Training,Transfer Training,Gait Training, Therapeutic Exercise,Balance Retraining,Post Op Education, Discharge Planning,Hot or Cold Pack,Neuromuscular Re-ed, Coordination Retraining Precautions Other Precautions seizures, falls Weight Bearing Status Weight Bearing Status Weight Bear as Tolerated Allowed Weight Bearing Amount (enter % WBAT RLE and RUE; shoulder or #) (%) sling recommended when not mobilizing Recommendations To Nursing Amount of Assist Needed 1 Person Assist Discharge Recommendations PT Discharge Recommendations Home with 31/12 Assist Available,Home Health,SNF Rehab,Acute Rehab,Home vs SNF, SNF vs Acute Rehab Equipment Needed for Home Before RTS, FWW (if RV will Discharge accommodate) Transportation Needs at Discharge Wheelchair/Cabulance
--- NOTE | 2021-11-15 09:46 | OT.IP.TRT ---
Current Diagnoses Alcohol abuse, uncomplicated (11/11/21) Alcohol dependence with withdrawal, unspecified (11/11/21) Nicotine dependence, unspecified, uncomplicated (11/11/21) Unspecified convulsions (11/11/21) Surgery Performed Operation Date: 11/12/21 11:15 Actual Procedures p Intramedullary Nailing Femur - Tj Morrison MD Occupational Therapy Treatment Note M2 OT-IP Current Condition Start: 11/14/21 11:40 Freq: Status: Active Protocol: Document 11/14/21 10:58 [facility] (Rec: 11/14/21 12:05 [facility] [id number]) Occupational Therapy Current Condition Current Condition Evaluation Date 11/14/21 Treatment Diagnosis s/p right Intramedually nailing of his femur, seizures Diagnosis Onset Date 11/11/21 Weight Bearing Status Weight Bearing Status Weight Bear as Tolerated Allowed Weight Bearing Amount (enter % Pt also had a right clavicle or #) (%) fx approx one month ago and is WBAT for RUE. RLE WBAT M3 OT- IP Subjective and Pain Start: 11/14/21 11:40 Freq: Status: Active Protocol: Document 11/15/21 09:49 [facility] (Rec: 11/15/21 09:59 [facility] [id number]) OT- Subjective Occupational Therapy Visit Type Type Treatment Note Visit Start Time 09:00 Visit Stop Time 09:46 Total Visit Minutes 46 Occupational Therapy Visit Comments Patient Comments Pt agreed to get up after having breakfast and getting his pain medications. Patient/Caregiver Goals TO go to rehab. OT Pain Assessment Pain When Pain Assessed During Mobility Pain Present Pain Present Pain Reported Location RT hip/femur Intensity 8 Scale Used Numeric (0 - 10) M4 OT- IP ADL's Start: 11/14/21 11:40 Freq: Status: Active Protocol: Document 11/15/21 09:49 [facility] (Rec: 11/15/21 09:59 [facility] [id number]) OT [id number] Comments OT Self-Feeding Comments NOt at meal time. OT ADL-Grooming Comments OT Grooming Comments NOt performed. OT ADL-Oral Care Comments Oral Care Comments NOt performed. OT ADL-Dressing General Eval Lower Body Dressing Ability Minimal Assistance,Maximum Assistance Comments OT Dressing Comments Pt able to use spoke maker with RAYSHAWN to help marcel off his heal and then use of sock aid and able to get his sock on the right foot with increased time . OT ADL-Toileting Comments OT Toileting Comments Pt has been using the urinal in bed on his own. OT ADL-Bathing Comments OT Bathing Comments Sponge bath more appropriate at this time due to limited mobility. M5 OT- IP IADL's Start: 11/14/21 11:40 Freq: Status: Active Protocol: Document 11/14/21 10:58 [facility] (Rec: 11/14/21 12:05 [facility] [id number]) OT-Instrumental Activities of Daily Living Home Safety Awareness Awareness of Need for Assistance at Home Good Awareness Home Safety Comments Pt partner available to assist pt as needed. M6 OT- IP Functional Cognition Start: 11/14/21 11:40 Freq: Status: Active Protocol: Document 11/15/21 09:49 [facility] (Rec: 11/15/21 09:59 [facility] [id number]) Cognitive Factors Limiting Selfcare Function Cognitive Comments Cognitive Assessment Comments Pt needing vc for safety to puch up with his left hand on the bed/recliner when coming to stand. Back up all the way to the bed/recliner so that his legs touch before sitting down. Pt wanting to grasp the armrest of the recliner before getting all the way around. M7 OT- IP Mobility and Balance Start: 11/14/21 11:40 Freq: Status: Active Protocol: Document 11/15/21 09:49 [facility] (Rec: 11/15/21 09:59 [facility] [id number]) OT- Bed Mobility Assessment Supine to Sit Supine to Sit Assist Standby Assistance OT-Transfer Assessment Sit to and From Stand Sit to and from Stand Contact Guard Assistance Comments Mobility Comments Pt able to come to stand with CGA wit FWW and now one person assist for transfers. Pt still unable to full lift up his right foot much and tends to have to shuffle his right root over. OT- Balance Assessment Sitting Balance and Reactions Static Sitting Balance Ability Good Dynamic Sitting Balance Ability Good Standing Balance and Reactions Static Standing Balance Ability Fair Comments Other Balance Tests/Deviations/Treatment BP [id number], 116/78, : sitting 106/69, standing 85/51 , after transfer to recliner 81/54 and sitting 103/66. Pt did not complain of being dizzy or whoozy today. Pt noted to have low HH 8.9 Hgb and 22.9 Hct, nursing aware. M8 OT- IP Objective Assessments Start: 11/14/21 11:40 Freq: Status: Active Protocol: Document 11/14/21 10:58 [facility] (Rec: 11/14/21 12:05 [facility] [id number]) OT Gross Range of Motion Upper Extremity Range of Motion Assessment Right Impaired OT Strength Upper Extremity Strength Assessment Right Impaired OT-Muscle Tone Assessment Muscle Tone WNL Yes M9 OT- IP Assessment and Plan Start: 11/14/21 11:40 Freq: Status: Active Protocol: Document 11/15/21 09:49 [facility] (Rec: 11/15/21 09:59 [facility] [id number]) OT Summary Assessment and Plan Potential Rehabilitation Potential Good Analytic Complexity at Evaluation Moderate Summary OT Impairments Pain,Range of Motion,Strength, Balance,Functional Cognition, Functional Mobility,Grooming, Dressing,Toileting,Bathing, Toilet Transfers,Shower Transfers,Activity Tolerance Progress Towards Goals Progressing Toward Goals Assessment Summary Pt making progress today with mobility and ADL needs. Pt will still greatly benefit from skilled rehab versus acute rehab when medically stable. However re-encouraged pt to start getting equipment needs now such as FWW,WC, BSC , LB dressing equipment, and urinal just in case pt is not authorized to go to rehab. Goals Grooming Goal Independent Dressing Goal Independent Toileting Goal Independent Bathing Goal Minimal Assistance Toilet Transfer Goal Independent Shower Transfer Goal Independent Days to Meet Goals 20 Frequency of Treatment Frequency Of Treatment Once a Day Treatment Plan OT Treatment Plan ADL Training,Functional Cognition Training,Functional Mobility,Patient/Family Education,Discharge Planning Discharge Recommendations OT Discharge Recommendations SNF Rehab,Acute Rehab,SNF vs Acute Rehab Transportation Needs at Discharge Wheelchair/Cabulance
--- NOTE | 2021-11-15 10:01 | P.PN_ITS ---
Subjective Subjective Date Patient Seen: 11/15/21 Time Patient Seen: 07:40 Interval history: Patient is complaining of [id number] right hip pain this morning.? He denies any new numbness or tingling.? He is being managed by the hospitalist for his alcohol withdrawal seizures.? He sustained his hip fracture in the hospital, while getting up unassisted.? He also has suffered a distal right clavicle fracture, approximately a month ago,, which was present upon admission. Ultrasound yesterday was negative for DVT. Exam Vital Signs (past 8 hours): - 11/15/21 04:00 11/15/21 08:00 Temperature 97.2 F L 98.7 F Pulse Rate 83 78 Respiratory Rate 15 16 Blood Pressure 118/81 110/74 Pulse Oximetry 100 99 Oxygen Delivery Method Room Air Oxygen Flow Rate 0 Narrative Exam Narrative: Pleasant but frail 51-year-old male, resting comfortably in bed, no acute distress. Dressing demonstrates some scant serosanguineous drainage, no surrounding erythema or induration. Bilateral lower extremity: Motor functions are grossly intact, sensation is grossly intact to light touch, calves are soft and nontender to palpation. Objective Labs Result Diagrams: 11/15/21 04:10 11/15/21 04:10 Labs: Laboratory Results - last 24 hr 11/15/21 11/15/21 04:10 04:10 WBC 5.5 RBC 2.25 L Hgb 8.0 L Hct 22.9 L MCV 101.7 H MCH 35.6 H MCHC 35.0 RDW 13.5 Plt Count 176 Sodium 131 L Potassium 3.7 Chloride 100 Carbon Dioxide 26 BUN 6 L Creatinine 0.35 L Estimated GFR > 60 BUN/Creatinine Ratio 17.1 Glucose 116 H Calcium 7.9 L [facility] Medical History Alcohol abuse Alcohol withdrawal seizure Tobacco dependence Family History Mother Alcohol dependence Brother Coronary artery disease Father Coronary artery disease Social History household members: significant other Smoking Status: Current every day smoker alcohol intake: current Assessment & Plan Post-op Postoperative Procedures: Procedures Operation Date: 06/05/22 11:15 Actual Procedure Side Surgeon p Intramedullary Nailing Femur Tj Morrison MD Postoperative day: 3 Postoperative status narrative: -stable status post right hip intramedullary nailing of his femur -prior right distal clavicle fracture, present upon admission -alcohol withdrawal and seizures, tobacco dependence, anemia are being managed by the hospitalist Postoperative plan narrative: -mobilize with PT. Weightbearing as tolerated with front wheel walker -DVT prophylaxis aspirin 81 mg b.i.d. x6 weeks -continue with multimodal pain management -appreciate the hospitalist managing his alcohol and benzodiazepine withdra wal/seizures and his existing medical problems -DC likely to SNF, pending hospitalist recommendation -orthopedics to sign off at this point, please feel free to re-consult if our services are needed. Follow-up with surgeon in 10-14 days postoperatively
--- NOTE | 2021-11-15 13:50 | PT-IP ANOTE ---
Attempted to see pt at 13:50, pt states he is too fatigued from getting up w/ nursing staff to participate this PM. Agreeable to participate tomorrow AM. Encouraged pt to transfer to chair w/ nursing for dinner this PM.
--- NOTE | 2021-11-15 14:10 | CM.DPC ---
DCP Cont: DCP spoke with Usman at [facility] to inquire about authorization for this pt. Per Usman, they sent out for auth this morning. If all looks well, they will be ready to accept pt tomorrow as they have beds. Usman to keep in contact with DCP regarding auth and acceptance. P: Once medically stable, pt to discharge to [facility]patient [facility] @ [facility]. Genoveva Gonzales RN/BRITTNEY
--- NOTE | 2021-11-15 18:09 | PM.PN.1 ---
Subjective Subjective Date Patient Seen: 11/15/21 Interval history: His hip pain is generally controlled though he complains of continued pain today. Denies chest pain, shortness of breath, remains weak and difficult to mobilize. Exam Vital Signs (past 8 hours): Oxygen Delivery Method Room Air Oxygen Flow Rate 0 Narrative Exam Narrative: General:? no acute distress Lungs: clear bilaterally no wheezing, rhonchi, rales CV: RRR no m/r/g. EXT: hip bandage intact, tender over incision NEURO: not tremulous or anxious appearing, no focal deficits noted Objective Labs Result Diagrams: 11/15/21 04:10 11/15/21 04:10 Labs: Laboratory Results - last 24 hr 11/15/21 11/15/21 04:10 04:10 WBC 5.5 RBC 2.25 L Hgb 8.0 L Hct 22.9 L MCV 101.7 H MCH 35.6 H MCHC 35.0 RDW 13.5 Plt Count 176 Sodium 131 L Potassium 3.7 Chloride 100 Carbon Dioxide 26 BUN 6 L Creatinine 0.35 L Estimated GFR > 60 BUN/Creatinine Ratio 17.1 Glucose 116 H Calcium 7.9 L [facility] Medical History Alcohol abuse Alcohol withdrawal seizure Tobacco dependence Family History Mother Alcohol dependence Brother Coronary artery disease Father Coronary artery disease Social History household members: significant other Smoking Status: Current every day smoker alcohol intake: current Assessment & Plan Assessment & Plan narrative: 1. Recurrent seizures prior to admission -initially secondary to ETOH withdrawal and was admitted to [facility] for 1 week, discharge 11/09, had a seizure just a couple hours after leaving hospital, seen at [facility] and treated with phenobarbital, declined admission and then ended up here with another seizure -last ETOH was over a week ago and probably these more recent seizures may be from benzodiazepine withdrawal rather than ETOH withdrawal -librium taper now improved. -received info on outpatient alcohol treatment resources -patient is orthostatic but denies symptoms today. May be related to librium, will continue to monitor. 2. Acute right hip subtrochanteric/intertrochanteric fracture with displacement -occurred from [facility] in hospital on 11/12 -status post ORIF on 11/12 -PT/OT 3. Right distal clavicle fracture with mild displacement, present on admission -this can be nonsurgically managed, provided sling for comfort and immobilization -instructed in ROM exercises, dangling arm and gently moving arm in circles -recommended outpatient Ortho follow-up 4. Anemia and thrombocytopenia secondary to alcohol dependency, chronic -continue daily thiamin and folic acid 5. Hypokalemia, corrected -received IV and oral potassium replacement -also received IV magnesium for low normal Mg 6. Hyponatremia, present on admission, likely chronic -continued NS hydration, now appears euvolemic 7. Moderate to severe chronic protein calorie malnutrition secondary to alcoholism -BMI 19 -address underlying cause (etoh) 8.? Nicotine dependency -encouraged to quit smoking, provided nicotine patch Code: Full Dispo: plan for acute rehab Time Spent With Patient Critical Care time: I spent a total of [] minutes of critical care time on this patient's care today; this time is exclusive of procedural time.
[2021-11-15 20:06] VITALS: BP 141/86; PULSE 99; RESP 17; TEMP 37.1
[2021-11-16 04:00] VITALS: BP 131/84; PULSE 88; RESP 16; TEMP 36.6; O2SAT 98
[2021-11-16 07:22] VITALS: BP 145/83; PULSE 90; RESP 17; TEMP 36.6; O2SAT 97
--- NOTE | 2021-11-16 08:07 | PT.IPTN ---
Current Diagnoses Alcohol abuse, uncomplicated (11/11/21) Alcohol dependence with withdrawal, unspecified (11/11/21) Nicotine dependence, unspecified, uncomplicated (11/11/21) Unspecified convulsions (11/11/21) Surgery Performed Operation Date: 11/12/21 11:15 Actual Procedures p Intramedullary Nailing Femur - Tj Morrison MD Physical Therapy Treatment Note M2 PT-IP Current Condition Start: 11/13/21 08:33 Freq: NEEDED Status: Active Protocol: Document 11/16/21 07:44 SP (Rec: 11/16/21 10:52 SP [id number]) Physical Therapy Current Condition Current Condition Evaluation Date 11/13/21 Treatment Diagnosis R femur fx s/p IMN; R clavicle fx; EtOT w/d, seizures; difficulty walking Onset Date 11/11/21 M3 PT-IP Subjective Start: 11/13/21 08:33 Freq: NEEDED Status: Active Protocol: Document 11/16/21 07:44 SP (Rec: 11/16/21 11:26 SP [id number]) Subjective Physical Therapy Visit Type Type Treatment Note Visit Start Time 07:44 Visit Stop Time 08:07 Total Visit Minutes 23 Notes Vitals taken during tx: supine: 159/90 HR 91 SaO2 100% on RA. seated: 157/91 HR 100 post transfer to chair: 145/83 , reported little dizziness but not limiting him. Number of COMPRESSOR MECHANIC Visits 4 Therapy Pain Assessment Pain When Pain Assessed During Mobility Pain Present Pain Present Pain Reported M4 PT-IP Mobility and Gait Start: 11/13/21 08:33 Freq: NEEDED Status: Active Protocol: Document 11/16/21 07:44 SP (Rec: 11/16/21 10:52 SP [id number]) PT-Bed Mobility Assessment Supine to Sit Supine to Sit Moderate Assistance,1 Person Assistance,Head of Bed Elevated Scooting Scooting to Edge of Bed Contact Guard Assistance PT-Transfer Assessment Sit to and From Stand Sit to and from Stand Moderate Assistance,1 Person Assistance,Use of Upper Extremities Equipment Transfer Assistive Device Gait Belt,Front Wheeled Walker Orthotic/Prosthetic Devices or Brace: No Transfers Transfer Destination Chair Transfer Technique Stand Step Pivot Transfer Ability Level of Assist Minimal Assistance,Moderate Assistance,1 Person Assistance ,Use of Upper Extremities Comments Mobility Comments Pt sleeping when arrived, was willing to mobilize early am. Instructed LE ex: AP, quad set , glut set, HS and Hip abd to EOB w/ use strap with assist. Complete elevated supine>sit Mod A for trunk support, education use strap for increase independence. scoot Mod A w/ transfer pad, STS Mod A w/ FWW, SPT to EOB Min-Mod A w/ FWW,decrease stance time and foot clearance on RLE heavier BUE through FWW, cued back step fully w/ fWW self mobiltize then reach back to sit Min A slow descent to chair. Pt ableto scoot self back in chair. COMPRESSOR MECHANIC placed waffle cushion on seat for comfort and skin integrity comfort. Pt declined further mobility this am, tired quickly and pain L hip. COMPRESSOR MECHANIC notified YARDING SUPERVISOR assist with CP for assist for pain control R hip. Pt had call light and all needs in reach before left. Gait Assessment Gait Gait Assistance Required: Minimum Assistance,Moderate Assistance,1 Person Assist Distance (Feet) 2 Able to Maintain Weight Bearing Status Yes During Gait Assistive Devices Assistive Device Gait Belt,Front Wheeled Walker Orthotic/Prosthetic Devices or Brace: No Comments Gait Comments see mobility section Stair Climbing Assessment Comments Stair Climbing Comments Not assessed as pt was unsafe and unable to ambulate. PT-Balance Assessment Sitting Balance and Reactions Static Sitting Balance Ability Good Dynamic Sitting Balance Ability Fair Standing Balance and Reactions Static Standing Balance Ability Good Dynamic Standing Balance Ability Fair Device Used FWW M5 PT-IP Objective Assessments Start: 11/13/21 08:33 Freq: NEEDED Status: Active Protocol: Document 11/13/21 10:35 AW (Rec: 11/13/21 11:26 AW [id number]) Orientation Orientation/Cognition Level of Alertness Confusional State Orientation Name,Day of Week,Place, Situation Language Function Ability Garbled Speech,Word Finding Difficulties Safety Awareness Decreased Safety Awareness Memory Description Short Term Impaired Comments Pt repeated himself frequently . He needed cues to turn his phone toward him when trying to send a text. Gross Range of Motion Upper Extremity ROM Assessment Right Impaired Lower Extremity ROM Assessment Right Impaired Strength Lower Extremity Strength Assessment Bilaterally Impaired Hip L 4-/5; R 3-/5 Knee L 4-/5; R 3/5 Coordination Assessment Gross Coordination Gross Coordination Impaired Assessment Finger to Nose Test Moderate Impairment Pronation/Supination Test Moderate Impairment Foot Tapping Test Moderate Impairment Sensation Assessment Sensation Gross Sensation WNL Muscle Tone Muscle Tone WNL Yes M6 PT-IP Treatment Start: 11/13/21 08:33 Freq: NEEDED Status: Active Protocol: Document 11/16/21 07:44 SP (Rec: 11/16/21 10:52 SP [id number]) Physical Therapy Treatment Exercises Exercises Ankle Pumps,Gluteal Sets,Quad Sets,Supine Hip Abduction Education Education Provided Weight Bearing Status,Safety M7 PT-IP Assessment and Plan Start: 11/13/21 08:33 Freq: NEEDED Status: Active Protocol: Document 11/16/21 07:44 SP (Rec: 11/16/21 10:52 SP [id number]) PT Summary Assessment and Plan Potential Rehabilitation Potential Fair Status of Condition at Evaluation Evolving Summary Impairments Pain,ROM,Strength,Balance, Coordination,Cognition,Bed Mobility,Transfers,Gait Progress Towards Goals Progressing Toward Goals,Slow Progress due to Pain,Slow Progress due to Activity Tolerance Assessment Summary Pt required Mod A for trunk and RLE to EOB support during bed mob, min - Mod transfers with FWW step pivot transfer to chair. Declined further mobility due to increased pain. Elevated BPs 150/80-90s throughout tx with little report dizziness. Pt will benefit from residential/ acute rehab to progress functional mobilty independence. Goals Bed Mobility Goal Standby Assistance Transfer Goal Minimal Assistance,Front Wheeled Walker Gait Goal Minimal Assistance,Front Wheel Walker Gait Distance 75 Other Goals - up/down 2 steps with B rails min A Days to Meet Goals 10 Frequency of Treatment Frequency Of Treatment Twice a Day Treatment Plan Physical Therapy Treatment Plan Bed Mobility Training,Transfer Training,Gait Training, Therapeutic Exercise,Balance Retraining,Post Op Education, Discharge Planning,Hot or Cold Pack,Neuromuscular Re-ed, Coordination Retraining Other Recommendations and Next Treatment bedmob, transfer and gait with Focus FWW as tolerated, follow chair at this time for safety. Precautions Other Precautions seizures, falls Weight Bearing Status Weight Bearing Status Weight Bear as Tolerated Allowed Weight Bearing Amount (enter % WBAT RLE and RUE; shoulder or #) (%) sling recommended when not mobilizing Recommendations To Nursing Amount of Assist Needed 1 Person Assist Discharge Recommendations PT Discharge Recommendations Home with 24/ Assist Available,Home Health,SNF Rehab,Acute Rehab,Home vs SNF, SNF vs Acute Rehab Equipment Needed for Home Before RTS, FWW (if RV will Discharge accommodate) Transportation Needs at Discharge Wheelchair/Cabulance
--- NOTE | 2021-11-16 08:15 | CM.DPC ---
Addendum entered by Genoveva Gonzales R.N. 11/16/21 12:21: Spoke to [facility] this morning, and Usman states that they can accept him today after 2:30pm. [facility]man requested 24 hour MAR summary and d/c summary. DCP to fax that over. DCP spoke to Christo, pt partner, and Christo did not feel comfortable transporting pt to [facility]. [facility] called and scheduled for 2pm transfer. Nurse to Nurse number given to Mini to call report. Pt and pt spouse updated. P: Pt to discharge to [facility] @ 2:00pm this afternoon via [facility]. Genoveva Gonzales RN/ROBINP Original Note: DCP Cont: DCP spoke with Usman this morning @ [facility]. Usman states that he was able to get the authorization for pt and he is requesting more clinicals. DCP faxed over requested clinicals this AM. Usman to call back within the hour once ophthalmic medical technologist reviews recent notes and if approved, he would help get transport set up and DCP to order COVID swab. P: Pt to discharge to inpatient rehab via transport. DCP to continue to follow. Genoveva Gonzales RN/ROBINP
[2021-11-16] MEDS: MULTIVITAMIN 1 TABLET 1 TAB PO (08:42)
[2021-11-16] MEDS: NICOTINE 21 MG PATCH TOP (08:42)
[2021-11-16] MEDS: ACETAMINOPHEN 325 MG TABLET 650 MG PO ×2 (08:43→14:08)
[2021-11-16] MEDS: OXYCODONE IR 5 MG TABLET PO ×2 (08:44→14:09)
[2021-11-16] MEDS: FOLIC ACID 1 MG TABLET PO (08:45)
[2021-11-16] MEDS: THIAMINE 100 MG TABLET PO (08:45)
[2021-11-16] MEDS: ASPIRIN EC 81 MG TABLET PO (08:45)
--- NOTE | 2021-11-16 08:55 | PC.NURSE ---
Addendum entered by Milady Bernstein R.N. 11/16/21 14:54: REPORT GIVEN TO IN SCHOOL SUSPENSION AIDE AT [facility]. ACUTE REHAB AND ALL QUESTIONS ANSWERED TO HER SATISFACTION- Addendum entered by Milady Bernstein R.N. 11/16/21 14:23: attempted to call report to [facility]. Acute Rehab- accepting nurse on break and will call back- left name and number- pt dressed and assisted to wheelchair - significant other took rest of personal belongings that did not go with the pt including rx that was stored in our pharmacy- left at 1415 Addendum entered by Milady Bernstein R.N. 11/16/21 11:26: updated from leather case finisherMillie acute rehab is willing to accept Original Note: MEDICATED FOR C/O RIGHT SHOULDER AND RIGHT HIP-AREA PAIN, AFEBRILE AND LUNGS DECREASED AT BASES BUT CLEAR - ROOM AIR SPO2 97%, NO NOTED EDEMA. PT ASSISTETD TO GET UP FROM BED TO CHAIR FOR AM MEAL, PT RESISTANT INITIALLY BUT RESPONDED TO ENCOURAGEMENT AND DID SO WITH USE OF GAIT BELT AND WALKER AND ASSIST OF ONE PERSON. GREAT APPETITE AND AND MOVING BOTH BOWELS AND BLADDER. APPROPRIATE IN HIS RESPONSES/BEHAVIOR. NO EVIDENCE OF SEIZURE ACTIVITY
[2021-11-16 09:40] LABS: Add Manual Diff / Slide Review NO; Basophils Absolute Auto 0 /uL (0-100); Basophils Percent Auto 0.4 % (0-2); Eosinophils Absolute Auto 100 /uL (0-450); Eosinophils Percent Auto 0.9 % (2-4); Hematocrit 24.8 % (41-53); Hemoglobin 8.5 g/dL (13.5-17.5); Lymphocytes Absolute Auto 1000 /uL (1100-4500); Lymphocytes Percent Auto 16.4 % (25-40); Mean Corpuscular HGB Conc 34.4 % (30-36); Mean Corpuscular Volume 101.7 fL (80-100); Monocytes Absolute Auto 500 /uL (0-900); Monocytes Percent Auto 8.2 % (3-14); Neutrophils Absolute Auto 4400 /uL (1500-7000); Neutrophils Percent Auto 74.1 % (50-75); Platelet Count 242 X10^3/uL (150-400); Red Blood Cell Count 2.44 X10^6/uL (4.5-5.9); Red Cell Distribution Width 13.7 % (11.6-14.8)
[2021-11-16 09:58] LABS: BUN Creatinine Ratio 8.3 (6-22); Blood Urea Nitrogen 4 mg/dL (9-20); Calcium 8.2 mg/dL (8.4-10.2); Carbon Dioxide 30 mmol/L (22-32); Chloride 98 mmol/L (98-107); Estimated Glomerular Filt Rate > 60 mL/min (>60); Glucose 149 mg/dL (70-100); HEMOLYSIS < 15 (0-50); Potassium 3.6 mmol/L (3.4-5.1); Sodium 130 mmol/L (137-145)
--- NOTE | 2021-11-16 10:40 | OT.IP.TRT ---
Current Diagnoses Alcohol abuse, uncomplicated (11/11/21) Alcohol dependence with withdrawal, unspecified (11/11/21) Nicotine dependence, unspecified, uncomplicated (11/11/21) Unspecified convulsions (11/11/21) Surgery Performed Operation Date: 11/12/21 11:15 Actual Procedures p Intramedullary Nailing Femur - Tj Morrison MD Occupational Therapy Treatment Note M2 OT-IP Current Condition Start: 11/14/21 11:40 Freq: Status: Active Protocol: Document 11/14/21 10:58 [facility] (Rec: 11/14/21 12:05 [facility] [id number]) Occupational Therapy Current Condition Current Condition Evaluation Date 11/14/21 Treatment Diagnosis s/p right Intramedually nailing of his femur, seizures Diagnosis Onset Date 11/11/21 Weight Bearing Status Weight Bearing Status Weight Bear as Tolerated Allowed Weight Bearing Amount (enter % Pt also had a right clavicle or #) (%) fx approx one month ago and is WBAT for RUE. RLE WBAT M3 OT- IP Subjective and Pain Start: 11/14/21 11:40 Freq: Status: Active Protocol: Document 11/16/21 10:40 [facility] (Rec: 11/16/21 12:29 [facility] [id number]) OT- Subjective Occupational Therapy Visit Type Type Treatment Note Visit Start Time 10:40 Visit Stop Time 10:52 Total Visit Minutes 12 Occupational Therapy Visit Comments Patient Comments Pt a bit worried about going to rehab. Pt's significant other in the room with pt. Patient/Caregiver Goals TO get better. OT Pain Assessment Pain When Pain Assessed At Rest Pain Present Pain Present Denied Pain M6 OT- IP Functional Cognition Start: 11/14/21 11:40 Freq: Status: Active Protocol: Document 11/16/21 10:40 [facility] (Rec: 11/16/21 12:29 [facility] [id number]) Cognitive Factors Limiting Selfcare Function Cognitive Ability Level of Alertness Alert Patient Orientation Name,Place,Situation Attention Span Ability Capable of Focused Attention, Capable of Sustained Attention Ability to Follow Commands Able to Follow One Step Commands Memory Description Short Term Impaired Cognitive Comments Cognitive Assessment Comments Suggested for pt to has a journal/paper to write things down as pt is somewhat forgetful. Suggested for pt to try to focus on one thing at a time. Also mentioned for pt to be sure to let the staff know at acute rehab what his needs are, concerns, and that it is okay to just take rest breaks and that he will not have to be up on his feet for 2-3 hours of therapy. In addition due to his recent right clavicle fx, could also work on increasing movement for RUAva. M7 OT- IP Mobility and Balance Start: 11/14/21 11:40 Freq: Status: Active Protocol: Document 11/15/21 09:49 [facility] (Rec: 11/15/21 09:59 [facility] [id number]) OT- Bed Mobility Assessment Supine to Sit Supine to Sit Assist Standby Assistance OT-Transfer Assessment Sit to and From Stand Sit to and from Stand Contact Guard Assistance Comments Mobility Comments Pt able to come to stand with CGA wit FWW and now one person assist for transfers. Pt still unable to full lift up his right foot much and tends to have to shuffle his right root over. OT- Balance Assessment Sitting Balance and Reactions Static Sitting Balance Ability Good Dynamic Sitting Balance Ability Good Standing Balance and Reactions Static Standing Balance Ability Fair Comments Other Balance Tests/Deviations/Treatment BP [id number], 116/78, : sitting 106/69, standing 85/51 , after transfer to recliner 81/54 and sitting 103/66. Pt did not complain of being dizzy or whoozy today. Pt noted to have low HH 8.9 Hgb and 22.9 Hct, nursing aware. M8 OT- IP Objective Assessments Start: 11/14/21 11:40 Freq: Status: Active Protocol: Document 11/14/21 10:58 [facility] (Rec: 11/14/21 12:05 [facility] [id number]) OT Gross Range of Motion Upper Extremity Range of Motion Assessment Right Impaired OT Strength Upper Extremity Strength Assessment Right Impaired OT-Muscle Tone Assessment Muscle Tone WNL Yes M9 OT- IP Assessment and Plan Start: 11/14/21 11:40 Freq: Status: Active Protocol: Document 11/16/21 10:40 [facility] (Rec: 11/16/21 12:29 [facility] [id number]) OT Summary Assessment and Plan Potential Rehabilitation Potential Good Analytic Complexity at Evaluation Moderate Summary OT Impairments Pain,Range of Motion,Strength, Balance,Functional Cognition, Functional Mobility,Grooming, Dressing,Toileting,Bathing, Toilet Transfers,Shower Transfers,Activity Tolerance Progress Towards Goals Progressing Toward Goals Assessment Summary Pt going to acute rehab today. pt issued leg automotive finance manager so able to work on increased his movement with RLE to be able to be more independent with his ADL and mobility needs. Goals Grooming Goal Independent Dressing Goal Independent Toileting Goal Independent Bathing Goal Minimal Assistance Toilet Transfer Goal Independent Shower Transfer Goal Independent Days to Meet Goals 20 Frequency of Treatment Frequency Of Treatment Once a Day Treatment Plan OT Treatment Plan ADL Training,Functional Cognition Training,Functional Mobility,Patient/Family Education,Discharge Planning Discharge Recommendations OT Discharge Recommendations Acute Rehab Transportation Needs at Discharge Wheelchair/Cabulance
--- NOTE | 2021-11-16 11:22 | P.DS_ITS ---
History of Present Illness History of Present Illness Date Patient Seen: 11/16/21 Time Patient Seen: 11:23 Chief complaint: seizure, ETOH WD Narrative: Per Dr. Schroeder, 51-year-old gentleman with longstanding history of alcohol dependence who presented to the emergency department after recurrent seizure. All history is obtained from the patient's significant other, Christo, as well as previous chart notes. Patient reportedly has had alcohol dependence for the past 35 years. For at least the past year or so, he has been drinking 12-18 beers per day or 1 large bottle of Merlot. He is have any significant period of sobriety. Up until 2020, he had not previously attempted to quit drinking. However, each time he has attempted to stop drinking since then, he has unfortunately suffered from withdrawal seizures. He recently stopped drinking alcohol on November 02, 2021. By the following day he had significant withdrawal symptoms. He was subsequently admitted to [facility] in [place], [place]. A brain MRI was reportedly normal. He remained there until November 09, 2021. His partner reported that the patient had been on benzodiazepines, but he is uncertain when those were discontinued. At the time of discharge, he was sent with a prescription for thiamine and a 2nd prescription but the patient's partner is uncertain what that med was. He left the hospital at approximately 1:00 p.m. However, around 4-430 p.m. he had a prolonged seizure lasting 5-6 minutes and he was transferred to [facility]. Admission was recommended but patient declined. He was given IV phenobarbital in the emergency department and was sent home with a prescription for this 15 mg twice daily followed by 15 mg once daily. He was sent with a 7 day prescription. Patient's partner reports he received a dose of oral phenobarbital on the evening of November 09. He also received both doses of oral phenobarbital on November 10. On the evening of November 10, he sustained another seizure and presented to [facility] for further evaluation. In the emergency department, he was noted to be postictal. He was initially quite hypertensive at 173/120. Pulse rate was 95, respiratory rate 18. Respiratory rate briefly documented at 38 but subsequently were down to the 15-[address] was performed and was within normal limits. CBC revealed macrocytic anemia with a hemoglobin of 12.5, as well as mild thrombocytopenia 141. And mild hyponatremia 132, potassium of 3.1. Urine tox screen was positive for marijuana, benzodiazepines, and barbiturates. Ethanol level was less than 10. Prolactin was 48.9. AST was elevated at 98. ALT elevated at 57. Normal alkaline phosphatase. Troponin was also within normal limits. In the emergency department, patient received 1 L of normal saline, 40 mEq of oral potassium chloride, 130 mg of IV phenobarbital, and 1 mg of IV lorazepam. Admission was recommended. Currently, patient is somnolent/postictal and unable to provide any history. Patient's partner reports patient has no history of seizure disorder, recent fall/head trauma, recent ill symptoms. He has gradually lost approximately 30 lb as he eats very poorly and primarily drinks his calories. He had been eating well in the hospital prior to discharge. He has not had any fevers or chills. No shortness of breath or complaint chest pain. He had not been having any nausea, vomiting, diarrhea, or complaints of abdominal pain. Discharge Providers Provider Date of admission: 11/11/21 02:00 Discharge Date: 11/16/21 Consults: 11/11/21 03:05 Consult to Dietitian, Adult Routine Comment: Reason For Exam: Protein calorie malnutrition, alcohol dependence Consult to Discharge Planning Routine Comment: Resources for EtOH rehab 11/12/21 08:35 Consult to Physician Routine Comment: Consulting Provider: Tj Morrison Reason for consultation: hip fx Has provider been notified: Yes 11/12/21 14:27 Consult to Discharge Planning Routine Comment: Consult to Physical Therapy Evaluate & Treat Comment: Physician Instructions: Evaluate and Treat 11/13/21 10:40 Consult to Occupational Therapy Evaluate & Treat Comment: Physician Instructions: Evaluate and treat Discharge provider: Jamison Diaz DO Summary Hospital Course Discharge Diagnosis: Please see hospital course by problem list noted below Hospital Course: 1. Recurrent seizures prior to admission, secondary to likely alcohol and subsequent benzodiazepine withdrawal. -initially secondary to ETOH withdrawal and was admitted to [facility] for 1 week, discharge 11/09, had a seizure just a couple hours after leaving hospital, [place] [facility] [place] with [place], declined admission and then ended up here with another seizure. -last ETOH was over a week ago and probably these more recent seizures may be from benzodiazepine withdrawal rather than ETOH withdrawal -now completed librium taper and patient has been without any seizure activity. -received info on outpatient alcohol treatment resources 2. Acute right hip subtrochanteric/intertrochanteric fracture with displacement -occurred from GLF in hospital on 11/12 -status post ORIF on 11/12 -continue PT / OT and transfer to acute rehab at time of discharge. -weight bearing as tolerated with Front Wheeled walker -6 weeks total of DVT ppx with asa 81 mg BID per orthopedics. 3. Right distal clavicle fracture with mild displacement, present on admission -this can be nonsurgically managed, provided sling for comfort and immobilization -instructed in ROM exercises, dangling arm and gently moving arm in circles -recommended outpatient Ortho follow-up in 1-2 weeks. 4. Acute blood loss Anemia and thrombocytopenia secondary to alcohol dependency, chronic -continue daily thiamin and folic acid -recent acute blood loss anemia likely related to surgery and combination of severe protein calorie malnutrition. H/h stable between 8-9 over the last few days. No signs of symptoms of continued blood loss. -continue dietary supplementation as recommended by chief psychologist. 5. Hypokalemia, corrected -received IV and oral potassium replacement -also received IV magnesium for low normal Mg 6. Hyponatremia, present on admission, likely chronic -continued NS hydration, now appears euvolemic and patient remains asymptomatic with Na staying around 130 on labs. Likely due to chronic etoh use. 7. Severe chronic protein calorie malnutrition secondary to alcoholism -BMI 19 -address underlying cause (etoh), also contributing towards patient anemia as discussed above. See dietary recommendations noted below. 1. Educated pt on nutrients for bone healing and nutrient repletion. Recc focus on protein, complex carbs, F+V. Discussed options for low elizabeth protein sources such as pb and eggs. 2. Provided application for EBT food benefits through [facility]. Notified pt how to double EBT benefits at local farmers market for purchase of local foods. 3. Recc initiation of MVI, consider adding to med list secondary to low income status. 4. Educated pt and partner on importance of structured food routine during early sobriety as a way to pass the time and build structure to reduce risk of relapse. 8.? Nicotine dependency -encouraged to quit smoking, provided nicotine patch 9. Orthostatic hypotension -patient has notable orthostatic hypotension when working with physical therapy. He denies any overt symptoms of dizziness when standing but this is more apparent after prolonged periods. This has continued to improve daily with continued therapy as well as adequate nutrition. This is probably in combination with his anemia and severe calorie malnutrition. Would recommend continuing aggressive oral rehydration and nutrition. Code: Full Dispo: Transfer to acute rehab, Prov[facility]utier[facility] Dickerson. Time Spent with Patient Time spent: Greater than 30 minutes Exam Vital Signs (past 8 hours): - 11/16/21 04:00 11/16/21 07:00 11/16/21 07:22 Temperature 97.8 F 97.9 F Pulse Rate 88 90 Respiratory Rate 16 17 Blood Pressure 131/84 145/83 H Pulse Oximetry 98 97 Oxygen Delivery Method Room Air Oxygen Flow Rate 0 Oxygen Delivery Method Room Air Oxygen Flow Rate 0 Narrative Exam Narrative: General:? no acute distress Lungs: clear bilaterally no wheezing, rhonchi, rales CV: RRR no m/r/g. EXT: hip bandage intact, non-tender today. NEURO: not tremulous or anxious appearing, no focal deficits noted Objective Labs Result Diagrams: 11/16/21 09:22 11/16/21 09:22 Labs: Laboratory Results - last 24 hr 11/16/21 11/16/21 09:22 09:22 WBC 6.0 RBC 2.44 L Hgb 8.5 L Hct 24.8 L MCV 101.7 H MCH 35.0 H MCHC 34.4 RDW 13.7 Plt Count 242 Neut % (Auto) 74.1 Lymph % (Auto) 16.4 L [place] % (Auto) 8.2 Eos % (Auto) 0.9 L Baso % (Auto) 0.4 Neut # (Auto) 4400 Lymph # (Auto) 1000 L [place] # (Auto) 500 Eos # (Auto) 100 Baso # (Auto) 0 Sodium 130 L Potassium 3.6 Chloride 98 Carbon Dioxide 30 BUN 4 L Creatinine 0.48 L Estimated GFR > 60 BUN/Creatinine Ratio 8.3 Glucose 149 H Calcium 8.2 L PFSH Medical History Alcohol abuse Alcohol withdrawal seizure Tobacco dependence Family History Mother Alcohol dependence Brother Coronary artery disease Father Coronary artery disease Social History household members: significant other Smoking Status: Current every day smoker alcohol intake: current Discharge Plan Discharge Plan Disposition: Xfer Inpatient Rehab Discharge orders & Medications Discharge Orders: Discharge (Order); Ordered 11/16/21 Ordered By: Jamison Diaz Prescriptions: Continued naltrexone 50 mg Tablet 50 mg PO DAILY Rx Instructions: Take 1 tablet (50mg total) by mouth daily. thiamine HCl (vitamin B1) 100 mg Tablet 100 mg PO DAILY Discontinued phenobarbital 15 mg Tablet See Rx Instructions .ROUTE .COMPLEX Rx Instructions: Take 1 tablet (15mg total) by mouth twice a day for 4 days, 15mg BID 1 day. Finish with 15mg daily X3 days. Follow up/Referrals: Tj Morrison MD [Physician] - (10-14 days for postop visit) Visit Report/Discharge Packet Instructions: Seizure Disorder -- Adult, Delirium Tremens, DI for Alcohol Use Disorder Forms: Surgery Discharge
[2021-11-16 12:07] LABS: COVID19 -Nasal RAPID Negative (Negative)
== END 2021-11-12 05:05 | DRG 775 ==
LOC: ED 01:13 → ICU 02:56 → AC 11-13 11:40 → ICU 11-13 11:40
PROVIDERS: Internal Medicine; Orthopaedic Surgery; Admitting Provider Family Medicine; Emergency Provider Emergency Medicine; Referring Provider Family Medicine; Visit Provider Family Medicine
DX: F10.239 Alcohol dependence with withdrawal, unspecified (principal); G40.89 Other seizures; E43 Unspecified severe protein-calorie malnutrition; E87.6 Hypokalemia; D69.59 Other secondary thrombocytopenia; D62 Acute posthemorrhagic anemia; S42.031A Displaced fracture of lateral end of right clavicle, initial encounter for closed fracture; F17.200 Nicotine dependence, unspecified, uncomplicated; Y90.0 Blood alcohol level of less than 20 mg/100 ml; Z68.1 Body mass index [BMI] 19.9 or less, adult; Z20.822 Contact with and (suspected) exposure to COVID-19
CPT/HCPCS: 36415; 70450; 73020; 73502; 76000; 80048; 80053; 80305; 80320; 82550; 83735; 84100; 84146; 84484; 85025; 85027; 85610; 87635; 87797; 93005; 93010; 93971; 94760; 96374; 96375; 97162; 97166; 97530; 97535; 99284; 99285; C9803; J0171; J0360; J0690; J1100; J1170; J2060; J2250; J2405; J2560; J2704; J3010; J3475

== ENCOUNTER 2021-11-12 05:05 | Inpatient (IN) | payer SELFPAY ==
[2021-11-11 03:22] VITALS: BMI 19.5
== END 2021-11-16 13:46 | DRG 482 ==
LOC: AC 11-23 13:46
PROVIDERS: Admitting Provider Family Medicine; Referring Provider Emergency Medicine; Visit Provider Family Medicine
DX: S72.21XA Displaced subtrochanteric fracture of right femur, initial encounter for closed fracture (principal); W06.XXXA Fall from bed, initial encounter; Y92.230 Patient room in hospital as the place of occurrence of the external cause
CPT/HCPCS: 36415; 73502; 76000; 80048; 83735; 85025; 85027; 85610; 87635; 93971; 94760; 97162; 97166; 97530; 97535; C9803; J0171; J0360; J0690; J1100; J1170; J2250; J2405; J2704; J3010; J3475